=== PATIENT | female | born 1945 | race Caucasian/White ===

== ENCOUNTER 2016-08-19 10:48 | Emergency (ER) | payer MEDICARE, BC ==
--- NOTE | 2016-08-19 11:07 | UC ---
Hip/Pelvis Pain - HPI Summary HPI Summary: 70 YEAR OLD FEMALE PRESENTS WITH LEFT HIP/BACK PAIN. - History Of Current Complaint Chief Complaint: UCBackPain Stated Complaint: LEFT SIDE PAIN-LEG,HIP,BACK Time Seen by Provider: 08/19/16 11:00 - Allergies/Home Medications Allergies/Adverse Reactions: Allergies Allergy/AdvReac Type Severity Reaction Status Date / Time No Known Allergies Allergy Verified 08/19/16 10:56 Home Medications: Home Medications Cranberry-Vitamin C [Azo Cranbery Urinary Trac 250-60 mg] 1 cap PO 08/19/16 [ History] Lisinopril TAB* [Prinivil TAB 5 MG*] 08/19/16 [History] PMH/Surg Hx/FS Hx/Imm Hx - Surgical History Surgical History: Yes Surgery Procedure, Year, and Place: 3 c-sections, wisdom teeth extraction; RETINA DETACHMNET 2006(REPAIRED WITH SCLERAL BUCKLE) PER PATIENT(OK TO SCAN PER DR RUVALCABA.) - Family History Known Family History: Positive: Unknown - Social History Alcohol Use: None Substance Use Type: None Smoking Status (MU): Never Smoked Tobacco Have You Smoked in the Last Year: No Review of Systems Constitutional: Negative Skin: Negative Eyes: Negative ENT: Negative Respiratory: Negative Cardiovascular: Negative Gastrointestinal: Negative Genitourinary: Negative Motor: Negative Neurovascular: Negative Musculoskeletal: Arthralgia, Decreased ROM, Myalgia Neurological: Negative Psychological: Negative All Other Systems Reviewed And Are Negative: Yes Physical Exam Triage Information Reviewed: Yes Vital Signs: Initial Vital Signs Temp 36.8 C 08/19/16 10:50 Pulse 82 08/19/16 10:50 Resp 22 08/19/16 10:50 BP 162/63 08/19/16 10:50 Pulse Ox 100 08/19/16 10:50 Eye Exam: Normal ENT Exam: Normal Dental Exam: Normal Neck exam: Normal Neck: Positive: 1 Respiratory Exam: Normal Cardiovascular Exam: Normal Abdominal Exam: Normal Musculoskeletal: Positive: Strength Limited @, ROM Limited @ Neurological Exam: Normal Psychological Exam: Normal Skin Exam: Normal Hip Injury Course/Dx - Course Course Of Treatment: LEFT HIP/LEG PAIN - Differential Dx/Diagnosis Provider Diagnoses: LEFT HIP/LEG PAIN Discharge - Discharge Plan Condition: Stable Disposition: AGAINST MEDICAL ADVICE Patient Education Materials: Hip Pain (ED) Referrals: Randall Stanley MD [Primary Care Provider] - If Needed
[2016-08-19 11:09] VITALS: BP 162/63
== END 2016-08-19 11:20 | disposition left against medical advice (07) ==
LOC: UCEAST 10:48
DX: M25.552 Pain in left hip (principal); M79.605 Pain in left leg
CPT/HCPCS: 99212; G0463

== ENCOUNTER 2016-08-19 11:40 | Emergency (ER) | payer MEDICARE, BC ==
[2016-08-19] MEDS ORDERED: oxyCODONE/Acetamin 5/325 MG* TAB PO ONE (14:16)
--- NOTE | 2016-08-19 14:25 | ED ---
Lower Extremity - HPI Summary HPI Summary: 70F presents with left back and pain down leg for a 5 days. She has had sciatica pain in past and this feels the same. She was recently on a cruise and developed sciatica pain during the cruise that resolves. She denies any injury to the area. She has denies any numbness or tingling. She denies any weakness. She states the pain makes it difficulty to walk. The pain is sharp in nature. She denies any loss of bowel or bladder or saddle anaesthesia. She is being followed by [facility] for K which has been trending downward and has lab work draw tomorrow. - History of Current Complaint Chief Complaint: EDHipPelvisInjury Stated Complaint: LT SIDE HIP/LEG PAIN Time Seen by Provider: 08/19/16 13:55 Pain Intensity: 9 - Allergies/Home Medications Allergies/Adverse Reactions: Allergies Allergy/AdvReac Type Severity Reaction Status Date / Time No Known Allergies Allergy Verified 08/19/16 10:56 PMH/Surg Hx/FS Hx/Imm Hx Endocrine/Hematology History: Reports: Hx Diabetes - type 2 Denies: Hx Thyroid Disease Cardiovascular History: Reports: Hx Hypertension Denies: Hx Pacemaker/ICD Respiratory History: Denies: Hx Asthma, Hx Chronic Obstructive Pulmonary Disease (COPD) GI History: Denies: Hx Ulcer Musculoskeletal History: Denies: Hx Rheumatoid Arthritis, Hx Osteoporosis Sensory History: Reports: Hx Hearing Aid Psychiatric History: Denies: Hx Panic Disorder - Cancer History Hx Chemotherapy: No Hx Radiation Therapy: No - Surgical History Surgery Procedure, Year, and Place: 3 c-sections, wisdom teeth extraction; RETINA DETACHMNET 2006(REPAIRED WITH SCLERAL BUCKLE) PER PATIENT(OK TO SCAN PER DR RUVALCABA.) Infectious Disease History: No Infectious Disease History: Denies: Hx Hepatitis, Hx Human Immunodeficiency Virus (HIV), Traveled Outside the [place] in Last 30 Days - Family History Known Family History: Positive: Unknown - Social History Alcohol Use: Rare Substance Use Type: Reports: None Smoking Status (MU): Never Smoked Tobacco Have You Smoked in the Last Year: No Review of Systems Negative: Fever Negative: Chest Pain Negative: Shortness Of Breath Positive: Myalgia - pain down leg All Other Systems Reviewed And Are Negative: Yes Physical Exam Triage Information Reviewed: Yes Vital Signs On Initial Exam: Initial Vitals Temp Pulse Resp BP Pulse Ox 98.2 F 90 16 138/65 100 08/19/16 11:43 08/19/16 11:43 08/19/16 11:43 08/19/16 11:43 08/19/16 11:43 Vital Signs Reviewed: Yes Appearance: Positive: Well-Appearing Skin: Positive: Warm, Dry Head/Face: Positive: Normal Head/Face Inspection Eyes: Positive: Normal, Conjunctiva Clear Respiratory/Lung Sounds: Positive: Clear to Auscultation, Breath Sounds Present Cardiovascular: Positive: Normal, RRR Musculoskeletal: Positive: Strength/ROM Intact - left leg, Other - pos SLR left , no midline tenderness back, tender on left side back, Neurological: Positive: Reflexes Intact - patella Diagnostics - Vital Signs Vital Signs Temp Pulse Resp BP Pulse Ox 08/19/16 11:43 98.2 F 90 16 138/65 100 - Laboratory Lab Statement: Any lab studies that have been ordered have been reviewed, and results considered in the medical decision making process. Lower Extremity Course/Dx - Course Course Of Treatment: 70F presents with left back and pain down leg for a 5 days. She has had sciatica pain in past and this feels the same. She was recently on a cruise and developed sciatica pain during the cruise that resolves. She denies any injury to the area. She has denies any numbness or tingling. She denies any weakness. She states the pain makes it difficulty to walk. The pain is sharp in nature. on exam pos SLR. tender of left side back, neurovascular intact. will treat with gabapentin and muscle relaxer. told to get K drawn tomorrow as scheduled and to follow up with primary. patient understands and agrees with plan - Diagnoses Differential Diagnosis/HQI/PQRI: Positive: Sciatica, Sprain, Strain Provider Diagnoses: Sciatica Discharge - Discharge Plan Condition: Good Disposition: HOME Prescriptions: Cyclobenzaprine TAB* [Flexeril 10 MG TAB*] 10 mg PO TID PRN #9 tab PRN Reason: Pain Gabapentin CAP(*) [Neurontin 100 mg CAP(*)] 100 mg PO TID #13 cap Patient Education Materials: Sciatica (ED) Referrals: Randall Stanley MD [Primary Care Provider] - Additional Instructions: Take gabapentin 3 times a day for pain Take muscle relaxers three times a day for 3 days Use Tylenol for pain every 6 hours ice/heat area, move as much as possible Follow up with primary within 5 days Return to ED if develop any new or worsening symptoms
[2016-08-19 14:40] VITALS: BP 133/78
== END 2016-08-19 14:35 | disposition home or self-care (01) ==
LOC: ED 11:40
DX: M54.32 Sciatica, left side (principal); E11.9 Type 2 diabetes mellitus without complications; I10 Essential (primary) hypertension
CPT/HCPCS: 99282; A9270-GY

== ENCOUNTER 2016-09-04 06:08 | Observation (INO) | payer MEDICARE, BC ==
[~2016-09-04 06:08] MED LIST: Buffered Lidocaine 0.9% SYRIN* 5 ML/SYR SYRINGE INTRADERM ONE; Buffered Lidocaine 0.9% SYRIN* 5 ML/SYR SYRINGE ONE; ceFAZolin 2 GM PREMIX (*) 2 GM/50 ML BAG IVPB ONE
[2016-09-04] MEDS ORDERED: Thrombin 5,000 UNITS* 1 APPLIC KIT - topical use - TOPICAL ONE (07:19)
[2016-09-04] MEDS ORDERED: Lidocaine 1% MPF wEPI 200,000* 30 ML SDV ONE (07:19)
[2016-09-04] MEDS ORDERED: Bacitracin IV* 50,000 UNITS INJ ONE (07:19)
[2016-09-04] MEDS ORDERED: fentaNYL* 50 MCG/ML 2 ML VIAL (100 MCG VIAL) ONE ×2 (07:25→09:52)
[2016-09-04] MEDS ORDERED: Midazolam* 1 MG/ML 2 ML VIAL (2 MG) ONE (07:25)
[2016-09-04] MEDS ORDERED: Cisatracurium* 2 MG/ML MDV 5 ML ONE (07:54)
[2016-09-04] MEDS ORDERED: Famotidine IV* 10 MG/ML 2 ML (20 mg) ONE (08:15)
[2016-09-04] MEDS ORDERED: Ondansetron INJ* 2 MG/ML VIAL ONE (08:15)
[2016-09-04] MEDS ORDERED: Succinylcholine* 20 MG/ML 10 ML VIAL ONE (08:15)
[2016-09-04] MEDS ORDERED: Phenylephrine IV* 40 MCG/ML 10 ML SYRINGE ONE (08:15)
[2016-09-04] MEDS ORDERED: Dexamethasone IV* 4 MG/ML 1 ML (4 MG) ONE (08:15)
[2016-09-04] MEDS ORDERED: Lidocaine 2% PF * 5 ML VIAL ONE (08:15)
[2016-09-04] MEDS ORDERED: Propofol* 10 MG/ML 20 ML BTL IV PUSH ONE (08:15)
[2016-09-04] MEDS ORDERED: EPHEDrine (Pressors)* 50 MG/ML VIAL ONE (08:25)
[2016-09-04] MEDS ORDERED: PROCHLORPERAZINE INJ 5 MG/ML 2 ML VIAL IV PRN (08:39)
[2016-09-04] MEDS ORDERED: DiMENhydriNATE IV* 50 MG/ML VIAL IV PUSH PRN (08:39)
[2016-09-04] MEDS ORDERED: fentaNYL* 50 MCG/ML 2 ML VIAL (100 MCG VIAL) IV PRN (08:39)
[2016-09-04] MEDS ORDERED: Acetaminophen TAB* 325 MG PO PRN (08:39)
[2016-09-04] MEDS ORDERED: Ondansetron INJ* 2 MG/ML VIAL IV PRN (09:27)
[2016-09-04] MEDS ORDERED: HYDROcodone/ACETAMIN 5-325 MG* 1 TAB PO PRN (09:27)
--- NOTE | 2016-09-04 10:06 | RAD ---
INDICATION: L4-L5 left lumbar discectomy. COMPARISON: Correlation is made with a prior MRI of the lumbar spine from August 28, 2016. TECHNIQUE: A single crosstable portable view of the lumbar spine was obtained in the operating room. FINDINGS: There are several surgical instruments which project posterior at the L4-L5 level. There is grade 1 anterior spondylolisthesis at the L4-L5 level. IMPRESSION: INTRAOPERATIVE CONTROL FILMS.
[2016-09-04] MEDS ORDERED: Insulin LISPRO* 1 UNITS UNIT SUBCUT SCH (11:30)
[2016-09-04] MEDS: Insulin LISPRO* 1 UNITS UNIT SUBCUT SCH ×3 (12:35→21:37)
--- NOTE | 2016-09-04 13:26 | CONS ---
CC: Dr. Stanley; Dr. Bell; Dr. Parkinson; Dr. Johnson* CONSULTATION REPORT: DATE OF CONSULT: 09/04/16 PRIMARY CARE PROVIDER: Dr. Stanley. PRODUCT DELIVERY SPECIALIST: Dr. Bell. RUBBLE PLACER: Dr. Parkinson. NEUROSURGEON: Dr. Johnson. REASON FOR CONSULT: Postoperative management of patient with history of hypertension, dyslipidemia, and diabetes. REQUESTING PHYSICIAN: The consultation was requested by Dr. Johnson from Neurosurgery. CHIEF COMPLAINT: Back pain. HISTORY OF PRESENT ILLNESS: Donna Darden is a 70-year-old female with history of hypertension, dyslipidemia, and diabetes, insulin dependent, who presented to the hospital today for a scheduled L4-L5 diskectomy and laminectomy performed by Dr. Johnson. Postoperatively, medicine service was requested to see patient for postoperative management of her chronic conditions. The patient herself currently is being seen in PACU. She experiences no pain. She complains of no nausea. She is alert and oriented x3 and does not appear lethargic. She stated that she has had problems with left leg pain and sciatica leg pain, whenever she would walk for several months now. That necessitated for her to use a wheelchair whenever she would go longer distances and usually would use a roller walker when at home. She stated that for her pain, she had used increasing dose of gabapentin with not the greatest relief in pain. Today, she is postoperative after L4-L5 laminectomy by Dr. Johnson. PAST MEDICAL HISTORY: 1. History of vitamin B12 deficiency. 2. Chronic kidney disease, stage 3, due to diabetes. 3. Diabetes, type 2, insulin dependent. 4. Hypercholesterolemia. 5. Hypertension. 6. History of x3. 7. History of detached retina. 8. History of cataract surgery. MEDICATIONS: At home, include: 1. Gabapentin 400 mg 3 times a day. 2. Acetaminophen on a p.r.n. basis. 3. Amlodipine 10 mg daily. 4. Aspirin 81 mg daily. 5. Atorvastatin 40 mg daily. 6. Cranberry with vitamin C 1 capsule b.i.d. 7. Vitamin B12 2500 mcg daily. 8. Insulin glargine 35 units at bedtime. 9. Lispro sliding scale. 10. Lisinopril 5 mg daily. 11. Metoprolol succinate 50 mg daily. 12. Multivitamin 1 tablet daily. 13. Omeprazole 20 mg daily. ALLERGIES: LEVAQUIN causes GI upset. FAMILY HISTORY: Positive for father with history of heart disease and COPD, who in his 80s. The patient's mother of "blood clot" at the age of 56. The patient is quite emotional when she is explaining her mother's . At this point, she is unable to give me further details. SOCIAL HISTORY: The patient lives alone. Her sister is the person of contact, but her surrogate would be her son, Gagan Darden. The patient denies any tobacco or drug use. She drinks alcohol rarely. REVIEW OF SYSTEMS: Please see history of present illness. Currently, she is in a postoperative state and denies pain. Her lower back pain radiating to left leg had been ongoing for several months, incapacitating to the point of problems with ambulatory dysfunction as mentioned above. The patient denies any chest pain or shortness of breath. Her diabetes had been reasonably controlled. She had been seeing Dr. Parkinson for history of chronic kidney disease, stage 3 and hypertension. All the remaining 14 systems were reviewed with the patient and were otherwise negative. PHYSICAL EXAM: Blood pressure of 135/74, heart rate of 76 and regular, respiratory rate 14, oxygen saturation 97% on room air, temperature 97.3. General: The patient is a very pleasant 70-year-old female, who is no acute distress. The patient is alert, awake, and oriented x3. HEENT: Head atraumatic, normocephalic. Eyes: Pupils equal and reactive to light and accommodation. Oropharynx clear. Mucosa moist. Neck: Supple. No JVD. No bruits bilaterally. Cardiovascular: Regular rate and rhythm. No murmur. Respiratory: Clear to auscultation bilaterally. Abdomen: Soft and nontender. Bowel sounds present in all 4 quadrats. Extremities: There is no edema. Pulses +2 bilaterally. No clubbing or cyanosis. Neuro Evaluation: Speech clear. Cranial nerves II through XII grossly intact. Motor strength is 5/5 bilaterally. On evaluation of the skin of the back, the patient has a postoperative dressing applied to the lumbar spine. There is one OMAR drain with serosanguineous contents in place. The postoperative dressings were not removed during the evaluation. Psychiatric Evaluation: The patient is oriented x 3 with no evidence of anxiety or depression. LABORATORY DATA: The most recent laboratory data was obtained on 08/31/16 shows sodium of 130, potassium of 4.2, chloride 102, carbon dioxide 22, BUN 44, creatinine 1.62, which is the patient's baseline. The patient's last hemoglobin A1c was obtained on 08/13/16, it was 7.6. CBC on 08/31/16 shows white blood cell count of 10.4, hemoglobin of 11.0, hematocrit 34, The patient's mild anemia is consistent with prior reports. ASSESSMENT AND PLAN: 1. Status post lumbar laminectomy and diskectomy. That is as per Dr. Johnson. The patient is being placed on gabapentin as well as Newton and fentanyl IV. 2. In regards to the patient's hypertension, we will continue the patient's lisinopril and Toprol-XL and hold amlodipine for the time being. 3. In regards to the patient's diabetes, the patient is usually at 35 units of Lantus at night. Due to currently in hospital setting, the patient is going to be placed at 25 units a night of insulin Lantus as well as insulin lispro sliding scale. 4. In regards to patient's dyslipidemia, Lipitor is going to be continued. 5. For DVT prophylaxis, the primary service did not place the patient on anticoagulation. I will consult with Dr. Johnson and start the patient most likely on heparin subcutaneously if okay with the primary service. 6. The patient's code status is full and her surrogate is her son. TIME SPENT: Approximately 62 minutes was spent on consultation of this patient , more than half the time was spent [id number] with patient during the interview and physical exam. Thank you very much for allowing me to see your patient in consultation. We will see the patient on a daily basis. [id number]/CPS #: [id number] MTDD
[2016-09-04] MEDS: Gabapentin CAP(*) 400 MG PO SCH ×2 (13:56→21:51)
[2016-09-04] MEDS ORDERED: Aspirin EC Low Dose* 81 MG TAB.EC PO SCH (18:00)
[2016-09-04] MEDS ORDERED: Insulin GLARGINE(*) 1 UNITS UNIT SUBCUT SCH ×2 (21:00)
[2016-09-04] MEDS: Acetaminophen TAB* 325 MG PO PRN (21:43)
[2016-09-05] MEDS: Acetaminophen TAB* 325 MG PO PRN (06:36)
[2016-09-05 07:34] VITALS: BP 128/54
--- NOTE | 2016-09-05 08:06 | PN ---
Progress Note - Progress Note Date of Service: 09/05/16 SOAP: Subjective: [This is a 70 year old female s/p decompressive lumbar laminectomy L4-5 and lumbar discectomy L4-5 on the left, POD #1. Pre-operative left lower extremity pain is improving. She complains of mild incisional discomfort. Pain is well controlled with oral pain medication. She is ambulating with assistance. She is eating, drinking and voiding without difficulty. Denies numbness, tingling, weakness and pain in the bilateral lower extremities. ] Objective: [ Vital Signs: Temp Pulse Resp BP Pulse Ox 98.4 F 86 16 128/54 95 09/05/16 07:21 09/05/16 07:21 09/05/16 07:21 09/05/16 07:21 09/05/16 07:21 General: Alert and oriented. No distress. Neuro: Motor and sensory intact. Incision: Intact with remberto. No erythema, swelling or infection. OMAR drain removed today without complication. Extremities: Full ROM in upper and lower extremities. ] Assessment: [Satisfactory post-op course.] Plan: [1. Discharge home today. 2. Discharge instructions including wound care and activity level were discussed with the patient. ]
[2016-09-05] MEDS: Insulin LISPRO* 1 UNITS UNIT SUBCUT SCH (08:22)
[2016-09-05] MEDS: Gabapentin CAP(*) 400 MG PO SCH (08:24)
[2016-09-05 08:42] LABS: Hematocrit 29 % (35-47); Hemoglobin 9.5 g/dl (12.0-16.0); Mean Corpuscular HGB Conc 32 g/dl (31-36); Mean Corpuscular Hemoglobin 28 pg (27-31); Mean Corpuscular Volume 88 fL (80-97); Mean Platelet Volume 7 um3 (7.4-10.4); Red Blood Count 3.36 10^6/ul (4.0-5.4); Red Cell Distribution Width 16 % (10.5-15); White Blood Count 19.6 10^3/ul (3.5-10.8)
[2016-09-05 08:58] LABS: BUN/Creatinine Ratio 29.9 (8-20); Calcium 9.1 mg/dL (8.6-10.3); EGFR Non-African American 38.9 (>60); Potassium 4.8 mmol/L (3.5-5.0)
[2016-09-05] MEDS ORDERED: Atorvastatin* 40 MG TAB PO SCH (09:00)
[2016-09-05] MEDS ORDERED: Metoprolol Tartrate TAB* 25 MG PO SCH (09:00)
[2016-09-05] MEDS ORDERED: AMLODIPINE BESYLATE 10 MG PO SCH (09:00)
[2016-09-05] MEDS ORDERED: Lisinopril TAB* 5 MG PO SCH (09:00)
[2016-09-05] MEDS ORDERED: Metoprolol Succinate XL TAB* 50 MG PO SCH ×2 (09:00)
[2016-09-05] MEDS ORDERED: Omeprazole CAP* 20 MG PO SCH (09:00)
--- NOTE | 2016-09-06 11:10 | DS ---
DISCHARGE SUMMARY: DATE OF ADMISSION: 09/04/16 DATE OF DISCHARGE: 09/05/16 PROVIDER: Dr. Johnson.* (DICTATED BY TORRES BISHOP) DISCHARGE DIAGNOSES: 1. Lumbar spinal stenosis, L4-5. 2. Herniated nucleus pulposus, L4-5 on the left. 3. Hypertension. 4. Diabetes. SPECIAL PROCEDURES: Decompressive lumbar laminectomy at L4-5 and lumbar discectomy at L4-5 on the left. HOSPITAL COURSE: This 70-year-old year female was seen in the office with symptomatic lumbar stenosis and lumbar radiculopathy. MRI showed lumbar stenosis at L4-5 and herniated disk at L4-5 on the left. She failed to improve with conservative treatments and was admitted at this time for elective surgical intervention. On the day of admission, she was taken to surgery where under general anesthesia, a decompressive lumbar laminectomy at L4-5 and a lumbar diskectomy at L4-5 on the left operation was carried out. Postoperatively, she was feeling well. Preoperative left lower extremity pain was resolved. She was ambulating independently. She was eating, drinking, and voiding without difficulty. Pain was well controlled with oral pain medication. On the first postoperative day, the OMAR wound drain was removed. She was also discharged home on the first postoperative day to the care of her family. DISCHARGE INSTRUCTIONS: Including wound care and activity level were discussed with the patient and provided. She will be seen in approximately 7 days for followup and staple removal. DISCHARGE MEDICATION: No discharge medications prescribed. TORRES BISHOP [id number]/[facility] #: [id number] [facility]LEY PSYCHIATRIC CENTERGonsalo
--- NOTE | 2016-09-11 01:09 | OP ---
DATE OF OPERATION: 09/04/16 - ROOM #335 DATE OF : 41 PRIMARY SURGEON: J Carlos Johnson MD REGISTRY RN: TORRES Mayberry ANESTHESIOLOGIST: Jean Echevarria MD ANESTHESIA: General. PRE-OP DIAGNOSIS: Lumbar spinal stenosis, L4-5; herniated nucleus pulposus, L4- 5 on the left. POST-OP DIAGNOSIS: Lumbar spinal stenosis, L4-5; herniated nucleus pulposus, L4 -5 on the left. OPERATIVE PROCEDURE: Lumbar decompression and laminectomy, L4-5 with diskectomy , L4-5 on the left with microdissection. DESCRIPTION OF PROCEDURE: After satisfactory general anesthesia was obtained, the patient was placed on the operating room table in a prone position with the chest supported on the Rolando frame and the back slightly flexed. The lumbar region was then clipped, prepped, and draped in a sterile manner for lumbar laminectomy and a skin incision outlined from L4 to L5. This incision was infiltrated with 1% Xylocaine with epinephrine after which it was turned down sharply to the level of the lumbar fascia. The fascia was divided on the spinous process from L4 to L5 and the paraspinal musculature stripped away using periosteal elevator and monopolar cautery bilaterally. An intraoperative x-ray was obtained verifying proper interspace localization after which the initial step in the procedure was a decompression at L4-5 level where the patient had significant spinal stenosis. The spinous process of L4 and the superior aspect of spinous process of L5 was removed with the Izzy rib shear and Leksell rongeur. The inferior aspect of the base of the spinous process with L4 inferior aspect of the lamina and medial aspect of facet complex was then thinned out with Midas Rudi drill. Decompression was then carried out and carried superiorly until the attachment of the ligamentum flavum was taken down. There was no remarked thickening of ligament as well as bony facet hypertrophy at this level. This decompression was carried out inferiorly until both L5 nerve root were noted to be free in their course. The additional superior exposure was obtained on the left side as preoperative x-rays had suggested the superior migration of the disk fragment. Utilizing microdissection, epidural venous structure were coagulated and divided. Muscular fragments of the disk as well as cartilaginous endplate were delivered from this exposure with marked compression on the L4 nerve root out near where it exited around the L4 pedicle. The disk space itself was palpated and was felt to be firm and was not disturbed. Hemostasis was obtained with temporary Gelfoam. After assuring adequate hemostasis, wound was thoroughly irrigated after which a piece of Gelfoam was placed over the laminectomy defect. A Cory drain was placed in the epidural space and tunneled out toward the left side. The fascia was then reapproximated with 0 Vicryl suture. The subcutaneous tissue was closed with 3-0 Vicryl suture and the skin closed with skin clips. The estimated blood loss was less than 50 cc. Final sponge, padding, and needle counts were correct. The patient was taken to the recovery room, extubated and in stable condition. [id number]/[facility] #: [id number] MTDD
== END 2016-09-05 10:00 | disposition home or self-care (01) ==
LOC: OR 06:08 → SSU 11:15
PROVIDERS: ADMIT Neurological Surgery; ATTEND Internal Medicine
PROC: 00NY0ZZ Release Lumbar Spinal Cord, Open Approach (ICD-10-PCS; 2016-09-04)
PROC: 0SB20ZZ Excision of Lumbar Vertebral Disc, Open Approach (ICD-10-PCS; principal; 2016-09-04 07:45)
DX: M48.06 Spinal stenosis, lumbar region (principal); M51.16 Intervertebral disc disorders with radiculopathy, lumbar region; E11.9 Type 2 diabetes mellitus without complications; I12.9 Hypertensive chronic kidney disease with stage 1 through stage 4 chronic kidney disease, or unspecified chronic kidney disease; N18.9 Chronic kidney disease, unspecified; Z79.4 Long term (current) use of insulin; Z79.899 Other long term (current) drug therapy
CPT/HCPCS: 36415; 72100; 80048; 85027; 88304; A9270-GY; G0378; J0330; J0690; J1100; J2001; J2250; J2405; J2704; J3010

== ENCOUNTER 2016-10-23 15:45 | Emergency (ER) | payer MEDICARE, BC ==
[2016-10-23 15:52] VITALS: BP 145/65
--- NOTE | 2016-10-23 17:04 | UC ---
Lower Extremity/Ankle HPI - HPI Summary HPI Summary: 71 y/o female with b/l leg swelling since back surgery (? lumbar fusion, decompression) 07/2016. patient states normal surgery, has been ambulatory without difficulty since, no SOB, chest pain. patient staets had b/l leg swelling since surgeyr, increased over past 2 weeks, L>R. STates in AM r leg smaller, L leg no change. Has not notified Raquel Johnson. h/o varicose veins , worse on L side. No h/o cardiac symptoms. - History of Current Complaint Chief Complaint: UCLowerExtremity Stated Complaint: LEG COMPLAINT Time Seen by Provider: 10/23/16 16:15 Hx Obtained From: Patient ?: No Onset/Duration: Gradual Onset, Lasting Weeks, Still Present, Worse Since - 2 weeks Severity Initially: Mild Severity Currently: Moderate - Allergies/Home Medications Allergies/Adverse Reactions: Allergies Allergy/AdvReac Type Severity Reaction Status Date / Time Levofloxacin [From Levaquin] AdvReac Nausea And Verified 10/23/16 15:52 Vomiting Home Medications: Home Medications HYDROcodo/Acetam5/325MG PREPAK [HYDROcodone/ACETAMIN 5-325 MG*] 1 tab PO Q4H PRN 10/23/16 [History Confirmed 10/23/16] PMH/Surg Hx/FS Hx/Imm Hx Previously Healthy: Yes - Surgical History Surgical History: Yes Surgery Procedure, Year, and Place: spinal surgery 07/2016. c-sections x3 - [facility]. wisdom teeth extraction - [facility] [place]. RETINA DETACHMENT 2006 (REPAIRED WITH SCLERAL BUCKLE - OK TO SCAN PER DR RUVALCABA.);- [place]. bilateral cataract extractions with IOL's - [facility] - Family History Known Family History: Positive: Unknown - Social History Alcohol Use: None Substance Use Type: None Smoking Status (MU): Never Smoked Tobacco Have You Smoked in the Last Year: No Review of Systems Eyes: Negative ENT: Negative Respiratory: Negative Cardiovascular: Negative Musculoskeletal: Myalgia - diffuse b/l LE All Other Systems Reviewed And Are Negative: Yes Physical Exam Triage Information Reviewed: Yes Appearance: Well-Appearing, No Pain Distress, Well-Nourished Vital Signs: Initial Vital Signs Temp 98.5 F 10/23/16 15:47 Pulse 81 10/23/16 15:47 Resp 16 10/23/16 15:47 BP 145/65 10/23/16 15:47 Pulse Ox 99 10/23/16 15:47 Vital Signs Reviewed: Yes Eyes: Positive: Conjunctiva Clear Respiratory: Positive: Chest non-tender, Lungs clear, Normal breath sounds Cardiovascular: Positive: RRR, Murmur:Sys:Grade _?_/ - 3 Musculoskeletal: Positive: Strength Intact, ROM Intact, Edema @ - b/l LE's, L mildly worse than R., Other: - homans negative b/l, + diffuse pain throughout calf, rodriguez. no warmth. Neurological: Positive: Alert, Muscle Tone Normal Psychological Exam: Normal Skin Exam: Normal Lower Extremity Course/Dx - Course Course Of Treatment: unable to perform US due to time, patient advised to go to ER for evaluation or if does not to call PCP, Dr. Johnson in AM and make aware of symptoms or return in AM to URgent care. EKG done- NSR - Differential Dx/Diagnosis Differential Diagnosis/HQI/PQRI: Cellulitis, DVT, Gout, Sprain, Strain Provider Diagnoses: lower leg edema Discharge - Discharge Plan Condition: Stable Disposition: HOME Patient Education Materials: Leg Edema (ED) Referrals: Randall Stanley MD [Primary Care Provider] - (Follow up for heart murmur, leg swelling ) Additional Instructions: - Follow up in ER for ultrasound tonight. IF not, return to urgent care tomorrow before 4 or notify primary physician/ Dr. Johnson for evaluation - Go immediately to ER with shortness of breath, chest pain, lightheadedness, leg pain, or new symptoms - elevate legs as much as possible, avoid sitting - Follow up with Dr. elizondo for heart murmur.
== END 2016-10-23 17:25 | disposition home or self-care (01) ==
LOC: UCEAST 15:45
DX: R60.9 Edema, unspecified (principal)
CPT/HCPCS: 93005; 99212; G0463

== ENCOUNTER 2016-10-23 17:45 | Emergency (ER) | payer MEDICARE, BC ==
[2016-10-23 21:08] LABS: Urine Bacteria Absent (Absent); Urine Bilirubin Negative (Negative); Urine Glucose Negative (Negative); Urine Nitrite Negative (Negative)
[2016-10-23 21:16] LABS: Hematocrit 30 % (35-47); Hemoglobin 9.9 g/dl (12.0-16.0); Mean Corpuscular HGB Conc 33 g/dl (31-36); Mean Corpuscular Hemoglobin 28 pg (27-31); Mean Corpuscular Volume 86 fL (80-97); Mean Platelet Volume 7 um3 (7.4-10.4); Red Cell Distribution Width 14 % (10.5-15); White Blood Count 10.4 10^3/ul (3.5-10.8)
--- NOTE | 2016-10-23 21:17 | RAD ---
Indication: Leg swelling. Comparison: August 31, 2016 Technique: Sitting AP and lateral chest views. Report: Costochondral calcifications noted. No pulmonary infiltrate, focal pulmonary lesion, pleural effusion, pneumothorax. Negative for pleural effusion or pneumothorax. The heart, pulmonary vasculature, and mediastinal contours are unremarkable. IMPRESSION: No evidence for acute intrathoracic disease.
[2016-10-23 21:32] LABS: BUN/Creatinine Ratio 32.6 (8-20); Calcium 9.5 mg/dL (8.6-10.3); EGFR Non-African American 36.6 (>60); Potassium 4.7 mmol/L (3.5-5.0); Total Bilirubin 0.5 mg/dL (0.2-1.0)
[2016-10-23] MEDS ORDERED: Furosemide TAB* 20 MG PO ONE (23:01)
--- NOTE | 2016-10-23 23:20 | ED ---
Montana Frye Rebecca, scribed for Sandy Foxuel on 10/23/16 at 2028 . Lower Extremity - HPI Summary HPI Summary: Pt is a 71 y/o F referred from [facility] who presents to ED c/o bilateral LE pain and edema. Sx have been present for multiple weeks, worsening recently. Sx aggravated and alleviated by nothing. Denies any other symptoms including SOB, CP and blood in stool. Reports she had back surgery in the 2nd week of July which caused a pinched nerve so she initially believed LE pain was due to nerve damage, but now swelling is present as well. No prior similar episodes. - History of Current Complaint Chief Complaint: EDExtremityLower Stated Complaint: SWOLLEN LEGS-NEEDS ULTRASOUND Time Seen by Provider: 10/23/16 20:11 Hx Obtained From: Patient Onset of Pain: Days - Multiple weeks Onset/Duration: Still Present Location: Is Discrete @ - Bilateral LE Associated Signs And Symptoms: Positive: Swelling Aggravating Factor(s): Nothing Alleviating Factor(s): Nothing - Allergies/Home Medications Allergies/Adverse Reactions: Allergies Allergy/AdvReac Type Severity Reaction Status Date / Time Levofloxacin [From Levaquin] AdvReac Nausea And Verified 10/23/16 15:52 Vomiting PMH/Surg Hx/FS Hx/Imm Hx Endocrine/Hematology History: Reports: Hx Diabetes - on meds Denies: Hx Thyroid Disease Cardiovascular History: Reports: Hx Hypertension - on meds, Other Cardiovascular Problems/Disorders - hyperlipidemia Denies: Hx Pacemaker/ICD Respiratory History: Denies: Hx Asthma, Hx Chronic Obstructive Pulmonary Disease (COPD) GI History: Reports: Hx Gastroesophageal Reflux Disease - on med Denies: Hx Ulcer History: Reports: Hx Renal Disease - DECREASING STAGE iii - SEES DR. NORIEGA Musculoskeletal History: Reports: Hx Arthritis - bilateral hands Denies: Hx Rheumatoid Arthritis, Hx Osteoporosis Sensory History: Reports: Hx Cataracts - bilateral, Hx Contacts or Glasses - glasses, Hx Hearing Aid - bilateral Opthamlomology History: Reports: Hx Cataracts - bilateral, Hx Contacts or Glasses - glasses Neurological History: Reports: Other Neuro Impairments/Disorders - left leg numbness/tingling Psychiatric History: Denies: Hx Panic Disorder - Cancer History Hx Chemotherapy: No Hx Radiation Therapy: No - Surgical History Surgery Procedure, Year, and Place: spinal surgery 07/2016. c-sections x3 - [facility] - [facility] [place]. RETINA DETACHMENT 2006 (REPAIRED WITH SCLERAL BUCKLE - [place] TO SCAN PER DR RUVALCABA.);- [place]. bilateral cataract extractions with IOL's - [facility] Hx Anesthesia Reactions: No Infectious Disease History: Denies: Hx Hepatitis, Hx Human Immunodeficiency Virus (HIV), Traveled Outside the [place] in Last 30 Days - Family History Known Family History: Positive: Diabetes - Social History Alcohol Use: None Substance Use Type: Reports: None Hx Tobacco Use: No Smoking Status (MU): Never Smoked Tobacco Have You Smoked in the Last Year: No Review of Systems Negative: Chest Pain Negative: Shortness Of Breath Positive: other - NEGATIVE: blood in stool Positive: Edema - Bilateral LE edema with associated pain All Other Systems Reviewed And Are Negative: Yes Physical Exam - Summary Physical Exam Summary: Appearance: Well appearing, no pain distress Skin: warm, dry Head/face: normal Eyes: EOMI, IGNACIO, pale conjunctiva ENT: normal Neck: supple, nontender Respiratory: CTA, breath sounds present Cardiovascular: RRR, pulses symmetrical Abdomen: nontender, soft Bowel: present Musculoskeletal: strength/ROM intact, bilateral pedal edema Neuro: normal, sensory motor intact, A&Ox3 Triage Information Reviewed: Yes Vital Signs On Initial Exam: Initial Vitals Temp Pulse Resp BP Pulse Ox 98.9 F 87 20 155/70 100 10/23/16 17:53 10/23/16 17:53 10/23/16 17:53 10/23/16 17:53 10/23/16 17:53 Vital Signs Reviewed: Yes Diagnostics - Vital Signs Vital Signs Temp Pulse Resp BP Pulse Ox 10/23/16 17:53 98.9 F 87 20 155/70 100 - Laboratory Result Diagrams: 10/23/16 21:00 10/23/16 21:00 Lab Statement: Any lab studies that have been ordered have been reviewed, and results considered in the medical decision making process. - Radiology CXR Xray Interpretation: No Acute Changes - No evidence for acute intrathoracic disease. ED physician reviewed radiology report and agrees. Radiology Interpretation Completed By: Radiologist - EKG 2044 Cardiac Rate: NL - 74 bpm EKG Rhythm: Sinus Rhythm EKG Interpretation: No acute changes Re-Evaluation - Re-Evaluation First Eval Re-Evaluation Time: 23:50 Change: Improved Comment: Pt's sx have improved. Lower Extremity Course/Dx - Course Assessment/Plan: Pt is a 71 y/o F referred from [facility] who presents to ED c/o bilateral LE pain and edema. Sx have been present for multiple weeks, worsening recently. Sx aggravated and alleviated by nothing. Denies any other symptoms including SOB, CP and blood in stool. Reports she had back surgery in the 2nd week of July which caused a pinched nerve so she initially believed LE pain was due to nerve damage, but now swelling is present as well. No prior similar episodes. CXR reveals no acute findings. EKG is sinus rhythm with no acute changes. Blood work was done. Pt will be D/C to home with Dx of pedal edema, anemia and chronic renal failure with Rx for Lasix and a follow up with her PCP. She understands and agrees. Elevated BP noted and advised to f/u with PCP. - Diagnoses Provider Diagnoses: Chronic renal failure, Anemia, Pedal edema Discharge - Discharge Plan Condition: Stable Disposition: HOME Patient Education Materials: Anemia (ED), Leg Edema (ED) Referrals: Randall Stanley MD [Primary Care Provider] - 3 Days The documentation as recorded by the Montana delgado Rebecca accurately reflects the service I personally performed and the decisions made by , Preston Fox.
[2016-10-23 23:38] VITALS: BP 139/54
== END 2016-10-23 23:38 | disposition home or self-care (01) ==
LOC: ED 17:45
DX: N18.9 Chronic kidney disease, unspecified (principal); D64.9 Anemia, unspecified; R60.9 Edema, unspecified
CPT/HCPCS: 36415; 71020; 80053; 81003; 81015; 83880; 84484; 85025; 85610; 85730; 87040; 87086; 93005; 99283; A9270-GY

== ENCOUNTER 2016-11-27 07:45 | Inpatient (IN) | payer MEDICARE, BC ==
[2016-12-24] MEDS ORDERED: Buffered Lidocaine 0.9% SYRIN* 5 ML/SYR SYRINGE INTRADERM ONE (16:26)
[2016-12-25] MEDS ORDERED: Metoclopramide IV* 5 MG/ML 2 ML VIAL IV SLOW PU ONE (06:00)
[2016-12-25] MEDS ORDERED: Famotidine IV* 10 MG/ML 2 ML (20 mg) IV ONE (06:00)
[2016-12-25] MEDS ORDERED: Metoclopramide IV* 5 MG/ML 2 ML VIAL ONE (06:31)
[2016-12-25] MEDS ORDERED: Famotidine IV* 10 MG/ML 2 ML (20 mg) ONE (06:31)
[2016-12-25] MEDS ORDERED: Buffered Lidocaine 0.9% SYRIN* 5 ML/SYR SYRINGE ONE (06:31)
[2016-12-25] MEDS ORDERED: ceFAZolin 2 GM PREMIX (*) 2 GM/50 ML BAG IVPB ONE (06:51)
[2016-12-25] MEDS ORDERED: fentaNYL* 50 MCG/ML 2 ML VIAL (100 MCG VIAL) ONE ×3 (07:30→11:59)
[2016-12-25] MEDS ORDERED: Midazolam* 1 MG/ML 2 ML VIAL (2 MG) ONE (07:31)
[2016-12-25] MEDS ORDERED: Lidocaine 1% MPF wEPI 200,000* 30 ML SDV ONE (07:35)
[2016-12-25] MEDS ORDERED: Bacitracin IV* 50,000 UNITS INJ ONE (07:35)
[2016-12-25] MEDS ORDERED: Thrombin 5,000 UNITS* 1 APPLIC KIT - topical use - TOPICAL ONE (07:35)
[2016-12-25] MEDS ORDERED: Lidocaine 1% INJ* 10 MG/ML 30 ML SDV ONE (07:37)
[2016-12-25] MEDS ORDERED: Succinylcholine* 20 MG/ML 10 ML VIAL ONE (07:38)
[2016-12-25] MEDS ORDERED: fentaNYL* 50 MCG/ML 2 ML VIAL (100 MCG VIAL) IV PRN (10:27)
[2016-12-25] MEDS ORDERED: DiMENhydriNATE IV* 50 MG/ML VIAL IV PUSH PRN (10:27)
[2016-12-25] MEDS ORDERED: Propofol* 10 MG/ML 20 ML BTL IV PUSH ONE (11:01)
[2016-12-25] MEDS ORDERED: Ondansetron INJ* 2 MG/ML VIAL ONE (11:01)
--- NOTE | 2016-12-25 11:40 | RAD ---
INDICATION: Decompressive lumbar laminectomy COMPARISON: Lumbar spine August 22, 2016 FINDINGS: Less than 1 hour seconds of fluoroscopy were provided for the numerous surgical department. Fluoroscopic spot imaging of the number spine were initially acquired for operative control purposes. CPT II Codes: 6045F (fluoro time doc)
[2016-12-25] MEDS ORDERED: Acetaminophen TAB* 325 MG PO PRN (11:47)
[2016-12-25] MEDS ORDERED: Ondansetron INJ* 2 MG/ML VIAL IV PRN (11:47)
[2016-12-25] MEDS ORDERED: Morphine INJ* 4 MG/ML 1 ML CARPUJECT IV PRN (11:52)
[2016-12-25] MEDS ORDERED: HYDROmorphone INJ* 1 MG/ML CARPUJECT SYRINGE ONE (11:59)
[2016-12-25] MEDS: HYDROmorphone INJ* 1 MG/ML CARPUJECT SYRINGE IV PRN ×2 (13:01→13:38)
[2016-12-25] MEDS: HYDROcodone/ACETAMIN 5-325 MG* 1 TAB PO PRN ×2 (15:42→20:47)
[2016-12-25] MEDS: Gabapentin CAP(*) 100 MG PO SCH ×2 (15:44→20:46)
[2016-12-25] MEDS: Atorvastatin* 20 MG TAB PO SCH (17:06)
[2016-12-25] MEDS: Aspirin EC Low Dose* 81 MG TAB.EC PO SCH (17:06)
[2016-12-25] MEDS: Insulin LISPRO* 1 UNITS UNIT SUBCUT SCH ×2 (17:49→21:00)
--- NOTE | 2016-12-25 19:00 | CONS ---
CC: Dr. Johnson ; Dr. Randall Stanley CONSULTATION REPORT: DATE OF CONSULT: 12/25/16 PHYSICIAN REQUESTING CONSULTATION: Dr. J Carlos Johnson. PRIMARY CARE PHYSICIAN: Dr. Randall Stanley. ATTENDING PHYSICIAN: Dr. Martine Yu (report dictated by Simi Guerrier NP). REASON FOR CONSULT: Medical comanagement. HISTORY OF PRESENT ILLNESS: Ms. Darden is a 71-year-old female with history of hypertension; dyslipidemia; diabetes, insulin dependent, who underwent a decompressive lumbar laminectomy today by Dr. Johnson. Postoperatively, hospitalists were asked to see the patient for co-management of patient's medical comorbities. The patient states that she has continued to have pain and numbness in her legs, left is worse than right ever since. The patient had a previous laminectomy in August and continued to have weakness; hence, she came in for a revision. The patient takes gabapentin and Flexeril to try and help relieve her pain. Today, she is postoperative from revision laminectomy of the lumbar spine, L3 to L4. The patient states that her diabetes is relatively controlled with sugars in the 100s. The patient has been following with Dr. Parkinson for chronic kidney disease, stage 3. Her creatinine was stable preop. Currently, the patient denies any chest pain, shortness of breath. The patient states pain is controlled and she reports a small amount of numbness in her left leg, it is greater than right leg. PAST MEDICAL HISTORY: Vitamin B12 deficiency; chronic kidney disease, stage 3, due to diabetes; type 2 diabetes, insulin dependent; hypercholesterolemia; hypertension; x3; detached retina; cataract surgery. HOME MEDICATIONS: Include: 1. Prilosec 20 mg oral daily. 2. Multivitamin 1 tablet oral daily. 3. Lopressor 50 mg oral in the morning. 4. Lisinopril 5 mg oral in the morning. 5. Lispro 6 units subcu a.c. 6. Lantus 35 units subcu at bedtime. 7. [place] 5/325 one tablet oral every 6 hours as needed. 8. Neurontin 300 mg oral q.8. 9. Lasix 20 mg oral daily. 10. Vitamin B12 2500 mcg oral daily. 11. Cranberry 1 capsule oral twice daily. 12. Lipitor 20 mg oral at bedtime. 13. Aspirin 81 mg oral daily. 14. Amlodipine 10 mg oral in the morning. 15. AREDS 1 capsule oral twice daily. ALLERGIES: LEVAQUIN causes GI upset. FAMILY HISTORY: The patient's father had a history of heart disease and COPD and in the 80s. The patient's mother of blood clot at the age of 56. SOCIAL HISTORY: The patient lives alone. The patient states that her surrogate decision maker would be Gagan Darden, her son. The patient denies any tobacco or drug use and only drinks alcohol rarely. REVIEW OF SYSTEMS: I performed a 14-point review of systems. All the pertinent positives and negatives are mentioned in the history of present illness. Remaining review of systems is negative. PHYSICAL EXAM: Vital Signs: Temperature 97.7, heart rate 84, respiratory rate 20, oxygen saturation 100% on 2 L, blood pressure 100/44. Appearance: The patient was alert, pleasant, appeared to be in no apparent distress. Head, Eyes , Ears, Nose, and Throat: Normocephalic/atraumatic. Pupils were equal and reactive to light. Extraocular movements were intact. Neck: Neck was supple. No JVD. No bruits. Cardiovascular: Regular rate and rhythm. No murmur heard. Respiratory: Clear to auscultation bilaterally. Abdomen: Soft, nontender. Bowel sounds present in all 4 quadrants. Extremities: There was no edema. Pulses are 2+ and symmetric. No clubbing or cyanosis noted. Neuro: Cranial nerves II through XII are grossly intact. Motor strength is 5/5 bilaterally. Skin: The patient has a postoperative dressing with 1 OMAR drain with sanguinous drainage. Psych: The patient is alert and oriented x3. DIAGNOSTIC STUDIES/LAB DATA: Preoperative laboratory data shows sodium 137; potassium 5.3; chloride 104; CO2 27; BUN 55; creatinine 1.5, creatinine at baseline ranges between 1.5 to 1.8. Glucose 216. Liver function tests within normal limits. White blood cell count 12.3, hemoglobin 9.9, hematocrit 30, platelet count 346. INR of 0.9, PTT 33.9. X-ray of the lumbar spine today for surgical guidance. IMPRESSION AND PLAN: This is a 71-year-old female with past medical history significant for hypertension, diabetes, chronic kidney disease, anemia of chronic disease, who underwent L3 to L4 decompressive laminectomy. Hospitalists were asked to assist with management of the patient's comorbidities. 1. Status post postop day 0 decompressive lumbar laminectomy. Management will be per Dr. Johnson. The patient is going to be given fentanyl IV as well as [place] and gabapentin for pain control. 2. Hypertension. The patient's blood pressure is on the lower side. Toprol- XL will continue, but lisinopril and amlodipine will be held. 3. Diabetes. The patient normally takes 35 units of Lantus at night. As patients are usually more compliant with a consistent carb diet in the hospital , this will be decreased 25 units at bedtime. She will also have sliding scale coverage for fingersticks with every meal and at bedtime. 4. Chronic kidney disease. The patient has a baseline elevated creatinine. The patient will have her basic metabolic panel checked in the morning. For the time being, Lasix will be held as the patient is receiving fluids. Yet, likely this can be restarted in the morning as long as the patient's blood pressure has stabilized. 5. DVT prophylaxis. Will be per Neurosurgery. The patient has SCDs ordered. 6. Code status is full. 7. Fluids, electrolytes, and nutrition. The patient will have a consistent carb diet. TIME SPENT: For this consultation was 50 minutes, and 25 minutes was spent with the patient discussing past medical history, medications, and events leading up to her elective surgery today. Reviewed by SIMI GUERRIER NP 12/25/2016 2100 [id number]/CPS #: [id number] [email or web address]
[2016-12-25] MEDS ORDERED: Insulin GLARGINE(*) 1 UNITS UNIT SUBCUT SCH ×2 (21:00)
[2016-12-26] MEDS: HYDROcodone/ACETAMIN 5-325 MG* 1 TAB PO PRN ×5 (00:55→20:13)
[2016-12-26] MEDS: Gabapentin CAP(*) 100 MG PO SCH ×3 (04:03→20:13)
[2016-12-26 06:54] LABS: Hematocrit 24 % (35-47); Hemoglobin 7.8 g/dl (12.0-16.0); Mean Corpuscular HGB Conc 33 g/dl (31-36); Mean Corpuscular Hemoglobin 28 pg (27-31); Mean Corpuscular Volume 83 fL (80-97); Mean Platelet Volume 7 um3 (7.4-10.4); Red Blood Count 2.82 10^6/ul (4.0-5.4); Red Cell Distribution Width 14 % (10.5-15); White Blood Count 9.8 10^3/ul (3.5-10.8)
[2016-12-26 07:11] LABS: BUN/Creatinine Ratio 32.9 (8-20); Calcium 8.5 mg/dL (8.6-10.3); EGFR African American 45.2 (>60); EGFR Non-African American 35.1 (>60); Potassium 4.7 mmol/L (3.5-5.0)
--- NOTE | 2016-12-26 07:38 | PN ---
Progress Note - Progress Note Date of Service: 12/26/16 SOAP: Subjective: []POD # 1 C/O severe incisional pain Has not been OOB yet Fuller in place Objective: []Moderate drain output HCT 24 Neuro intact Assessment: []Slow progress post op Plan: []Increase activity level PT consult Get fuller out
[2016-12-26] MEDS: Insulin LISPRO* 1 UNITS UNIT SUBCUT SCH ×4 (08:22→20:58)
[2016-12-26] MEDS: Omeprazole CAP* 20 MG PO SCH (08:44)
[2016-12-26] MEDS: Metoprolol Tartrate TAB* 25 MG PO SCH (08:44)
[2016-12-26] MEDS ORDERED: Furosemide TAB* 20 MG PO SCH (09:00)
[2016-12-26] MEDS ORDERED: Lisinopril TAB* 5 MG PO SCH (09:00)
[2016-12-26] MEDS ORDERED: AMLODIPINE BESYLATE 10 MG PO SCH (09:00)
--- NOTE | 2016-12-26 14:08 | PN ---
Subjective Date of Service: 12/26/16 Interval History: Patient seen and examined at bedside. Patient sitting up in a chair c/o of pain from sitting up and wishing to go back to bed. Sugars controlled this AM but now elevated this PM. Hb down to 7.8 but patient denies dizziness. Family History: Unchanged from Admission Social History: Unchanged from Admission Past Medical History: Unchanged from Admission Objective Active Medications: Acetaminophen (Tylenol Tab*) 650 mg PO Q4H PRN Hydrocodone Bitart/Acetaminophen ([place] 5-325 Tab*) 2 tab PO Q4H PRN Aspirin (Aspirin Ec Low Dose*) 81 mg PO QPM HARDY Atorvastatin Calcium (Lipitor*) 20 mg PO QPM HARDY Gabapentin (Neurontin Cap(*)) 300 mg PO Q8H HARDY Insulin Glargine (Lantus(*)) 25 units SUBCUT BEDTIME HARDY Insulin Human Lispro (Humalog*) 0 units SUBCUT ACHS HARDY Metoprolol Tartrate (Lopressor Tab*) 50 mg PO QAM HARDY Morphine Sulfate (Morphine Inj (Syringe)*) 4 mg IV Q4H PRN Omeprazole (Prilosec Cap*) 20 mg PO QAM HARDY Ondansetron HCl (Zofran Inj*) 4 mg IV Q6H PRN Vital Signs Temp Pulse Resp BP Pulse Ox 98.0 F 98 20 119/72 98 12/26/16 07:21 12/26/16 07:21 12/26/16 13:04 12/26/16 07:21 12/26/16 08:00 Oxygen Devices in Use Now: None Appearance: sitting up in chair, NAD Eyes: No Scleral Icterus, PERRLA Ears/Nose/Mouth/Throat: NL Teeth, Lips, Gums, Mucous Membranes Moist Neck: NL Appearance and Movements; NL JVP Respiratory: Symmetrical Chest Expansion and Respiratory Effort, Clear to Auscultation Cardiovascular: NL Sounds; No Murmurs; No JVD, RRR Abdominal: NL Sounds; No Tenderness; No Distention, No Hepatosplenomegaly Extremities: - - 2+ edema Skin: - - back incision C/D/I; OMAR drain in place Neurological: Alert and Oriented x 3, - - decreased sensation on RLE Lines/Tubes/Other Access: Clean, Dry and Intact Peripheral IV Nutrition: Taking PO's Result Diagrams: 12/26/16 06:02 12/26/16 06:02 Assess/Plan/Problems-Billing Patient is a 71 y/o F w/ hx of CKD stage III, type 2 DM insulin dependent, HTN, HLD, B12 deficiency who underwent a decompressive lumbar laminectomy on 2016. Hospitalists were asked to assist with medical co-management. - Patient Problems (1) Status post lumbar laminectomy Comment: Management per Neurosurgery. Pain control. PT/OT. Tamela d/c this AM. Recheck H/H in AM. (2) Anemia associated with acute blood loss Comment: Acute and Chronic anemia. Chronic from CKD and B12 deficiency. Baseline Hb 9.9 and down to 7.8 this AM. Recheck in AM. (3) Diabetes mellitus Comment: Sugars up this PM. Continue Lantus - Increase to home dose of 35. Will increase sliding scale as well. Check Hb A1C (4) CKD stage 3 due to type 2 diabetes mellitus Comment: Cr 1.4 at baseline. (5) HTN (hypertension) Comment: Continue Metoprolol. Hold Lisinopril and Lasix for now. (6) HLD (hyperlipidemia) Comment: Continue Lipitor. (7) DVT prophylaxis Comment: SCDs per neurosurgery. (8) Full code status Status and Disposition: Inaptient s/p laminectomy. Dispo per neurosurgery.
[2016-12-26] MEDS: Atorvastatin* 20 MG TAB PO SCH (17:59)
[2016-12-26] MEDS: Aspirin EC Low Dose* 81 MG TAB.EC PO SCH (18:12)
[2016-12-26] MEDS: Insulin GLARGINE(*) 1 UNITS UNIT SUBCUT SCH (20:59)
[2016-12-27] MEDS: HYDROcodone/ACETAMIN 5-325 MG* 1 TAB PO PRN ×4 (01:37→21:54)
[2016-12-27] MEDS: Gabapentin CAP(*) 100 MG PO SCH ×3 (06:55→21:55)
[2016-12-27 07:01] LABS: Hematocrit 22 % (35-47); Hemoglobin 7.3 g/dl (12.0-16.0); Mean Corpuscular HGB Conc 33 g/dl (31-36); Mean Corpuscular Hemoglobin 28 pg (27-31); Mean Corpuscular Volume 84 fL (80-97); Mean Platelet Volume 7 um3 (7.4-10.4); Red Blood Count 2.61 10^6/ul (4.0-5.4); Red Cell Distribution Width 15 % (10.5-15)
[2016-12-27] MEDS: Omeprazole CAP* 20 MG PO SCH (09:27)
[2016-12-27] MEDS: Metoprolol Tartrate TAB* 25 MG PO SCH (09:27)
[2016-12-27] MEDS: Insulin LISPRO* 1 UNITS UNIT SUBCUT SCH ×4 (09:28→21:52)
--- NOTE | 2016-12-27 09:31 | PN ---
Progress Note - Progress Note Date of Service: 12/27/16 SOAP: Subjective: []POD# 2 Up in chair Feels better this am Drainage has slowed Objective: []Neuro intact 60 cc out of drain Assessment: []Slowly improving Plan: []Increase activity level
[2016-12-27] MEDS ORDERED: Polyethylene Glycol 3350* 17 GM PACKET PO PRN (13:07)
[2016-12-27] MEDS: Magnesium Hydroxide LIQ* 30 ML UDC PO PRN (14:54)
[2016-12-27] MEDS: Aspirin EC Low Dose* 81 MG TAB.EC PO SCH (17:10)
[2016-12-27] MEDS: Atorvastatin* 20 MG TAB PO SCH (17:10)
--- NOTE | 2016-12-27 17:56 | PN ---
Subjective Date of Service: 12/27/16 Interval History: Patient seen and examined at bedside. Denies fever, chills, shortness of breath , chest discomfort, N/V/D, numbness, tingling or weakness. Pt reports no BM since Saturday, difficulty initiating urine stream and some "dribbling", left LE pain (she had this pre-op). Family History: Unchanged from Admission Social History: Unchanged from Admission Past Medical History: Unchanged from Admission Objective Active Medications: Acetaminophen (Tylenol Tab*) 650 mg PO Q4H PRN Reason: PAIN Hydrocodone Bitart/Acetaminophen ([place] 5-325 Tab*) 2 tab PO Q4H PRN Reason: marked pain Aspirin (Aspirin Ec Low Dose*) 81 mg PO QPM HARDY Atorvastatin Calcium (Lipitor*) 20 mg PO QPM HARDY Gabapentin (Neurontin Cap(*)) 300 mg PO Q8H HARDY Insulin Glargine (Lantus(*)) 35 units SUBCUT BEDTIME HARDY Insulin Human Lispro (Humalog*) 0 units SUBCUT ACHS HARDY Reason: Protocol Magnesium Hydroxide (Milk Of Magnesia Liq*) 30 ml PO Q6H PRN Reason: CONSTIPATION Metoprolol Tartrate (Lopressor Tab*) 50 mg PO QAM HARDY Morphine Sulfate (Morphine Inj (Syringe)*) 4 mg IV Q4H PRN Reason: PAIN Omeprazole (Prilosec Cap*) 20 mg PO QAM HARDY Ondansetron HCl (Zofran Inj*) 4 mg IV Q6H PRN Reason: NAUSEA/VOMITING Polyethylene Glycol/Electrolytes (Miralax*) 17 gm PO DAILY PRN Reason: CONSTIPATION Vital Signs 12/26/16 12/26/16 12/26/16 17:55 19:40 19:41 Temperature 100.0 F Pulse Rate 103 Respiratory 18 20 20 Rate Blood Pressure 137/40 (mmHg) O2 Sat by Pulse 95 Oximetry 12/26/16 12/26/16 12/26/16 20:13 22:13 23:28 Temperature 100.5 F Pulse Rate 112 Respiratory 18 20 16 Rate Blood Pressure 114/39 (mmHg) O2 Sat by Pulse 94 Oximetry 12/27/16 12/27/16 12/27/16 01:37 04:13 07:37 Temperature 99.9 F 98.6 F Pulse Rate 71 94 Respiratory 20 16 16 Rate Blood Pressure 129/40 133/46 (mmHg) O2 Sat by Pulse 93 94 Oximetry 12/27/16 12/27/16 12/27/16 09:27 11:35 12:19 Temperature 98.4 F Pulse Rate 75 Respiratory 16 16 16 Rate Blood Pressure 136/37 (mmHg) O2 Sat by Pulse 96 Oximetry 12/27/16 12/27/16 12/27/16 12:25 14:54 15:24 Temperature 98.7 F Pulse Rate 91 Respiratory 16 16 18 Rate Blood Pressure 145/56 (mmHg) O2 Sat by Pulse 99 Oximetry Oxygen Devices in Use Now: None Appearance: NAD, sitting up in a chair Ears/Nose/Mouth/Throat: Mucous Membranes Moist Respiratory: Symmetrical Chest Expansion and Respiratory Effort, Clear to Auscultation Cardiovascular: NL Sounds; No Murmurs; No JVD, RRR Abdominal: NL Sounds; No Tenderness; No Distention Extremities: - - Mild edema to bilateral LE Skin: No Rash or Ulcers Neurological: Alert and Oriented x 3, NL Muscle Strength and Tone, - - Able to plantar and dorsi flex bilateral Lines/Tubes/Other Access: Clean, Dry and Intact Peripheral IV - site benign Nutrition: Taking PO's Result Diagrams: 12/27/16 05:50 12/26/16 06:02 Assess/Plan/Problems-Billing Ms. Darden is a 71 y/o F w/ hx of CKD stage III, type 2 DM insulin dependent, HTN , HLD, B12 deficiency who underwent a decompressive lumbar laminectomy on 2016. Hospitalists were asked to assist with medical co-management. - Patient Problems (1) Status post lumbar laminectomy Code(s): Z98.890 - OTHER SPECIFIED POSTPROCEDURAL STATES SNOMED Code(s): 66456122744584896 Comment: - Management per Neurosurgery. - Continue pain control, and PT/OT. (2) Anemia associated with acute blood loss Code(s): D62 - ACUTE POSTHEMORRHAGIC ANEMIA SNOMED Code(s): 798636136 Comment: - Acute and Chronic anemia. - Chronic from CKD and B12 deficiency. - Baseline Hb 9.9 and down to 7.3 this AM. Recheck in AM. (3) Diabetes mellitus Code(s): E11.9 - TYPE 2 DIABETES MELLITUS WITHOUT COMPLICATIONS SNOMED Code(s) : 96976454 Comment: - Glucose improving today, 180-270's - HgbA1C 7.6 - Continue Lantus and Lispro SS (4) CKD stage 3 due to type 2 diabetes mellitus Code(s): E11.22 - TYPE 2 DIABETES MELLITUS W DIABETIC CHRONIC KIDNEY DISEASE; N18.3 - CHRONIC KIDNEY DISEASE, STAGE 3 (MODERATE) SNOMED Code(s): 923507077210 Comment: - Cr 1.4 at baseline. (5) HTN (hypertension) Code(s): I10 - ESSENTIAL (PRIMARY) HYPERTENSION SNOMED Code(s): 75343867 Comment: - Mostly normotensive, SBO 110-140's. - Continue Metoprolol. - Resume amlodipine in AM. - Continue to hold Lasix and lisinopril for now. (6) HLD (hyperlipidemia) Code(s): E78.5 - HYPERLIPIDEMIA, UNSPECIFIED SNOMED Code(s): 72230027 Comment: - Continue Lipitor. (7) DVT prophylaxis Code(s): KKA7421 - SNOMED Code(s): 439219983 Comment: - SCDs per neurosurgery. (8) Full code status Code(s): Z78.9 - OTHER SPECIFIED HEALTH STATUS SNOMED Code(s): 190966781 Status and Disposition: Inpatient. Dispo per neurosurgery.
[2016-12-27] MEDS: Insulin GLARGINE(*) 1 UNITS UNIT SUBCUT SCH (21:52)
[2016-12-28] MEDS: Gabapentin CAP(*) 100 MG PO SCH ×3 (03:36→20:57)
[2016-12-28] MEDS: HYDROcodone/ACETAMIN 5-325 MG* 1 TAB PO PRN ×4 (03:39→21:45)
[2016-12-28] MEDS: Magnesium Hydroxide LIQ* 30 ML UDC PO PRN (03:41)
[2016-12-28 06:25] LABS: Hematocrit 23 % (35-47); Hemoglobin 7.8 g/dl (12.0-16.0)
--- NOTE | 2016-12-28 07:29 | PN ---
Progress Note - Progress Note Date of Service: 12/28/16 SOAP: Subjective: [S/p lumbar decompression and instrumented fusion L4-5 with lumbar discectomy L4 -5 on the left, POD#3. She states that she is feeling well although she continues to have generalized weakness in the lower extremities. The patient was somewhat deconditioned prior to surgery because she had been unable to perform prolonged activity secondary to radicular and low back pain. Her surgery had been postponed for medical clearance. She has been working with physical therapy post-operatively. She reports persistent numbness in the lower extremities, left worse than right. She is eating, drinking and voiding without difficulty. Denies headache, dizziness, nausea and shortness of breath, chest pain. Pain controlled with oral pain medications. ] Objective: [ Vital Signs: Temp Pulse Resp BP Pulse Ox 99.2 F 85 16 116/53 97 12/28/16 07:29 12/28/16 07:29 12/28/16 13:38 12/28/16 07:29 12/28/16 07:29 General: Patient is alert and oriented, sitting in chair. No distress. Neuro: Motor intact, mild decreased sensation in lower extremities. Extremities: 2+ edema in bilateral lower extremities. Incision: Intact and without swelling. Cory drain in place and functioning well. Cory drain output 12/25/16 12/25/16 12/25/16 14:00 18:34 19:30 Output, OMAR #1 60 110 30 12/25/16 12/26/16 12/26/16 21:46 01:00 01:55 Output, OMAR #1 30 30 10 12/26/16 12/26/16 12/27/16 05:44 14:00 00:15 Output, OMAR #1 30 30 15 12/27/16 12/27/16 12/27/16 01:47 06:00 11:30 Output, OMAR #1 15 5 15 12/27/16 12/27/16 12/27/16 14:00 18:41 22:46 Output, OMAR #1 10 2 0 12/28/16 12/28/16 04:18 13:13 Output, OMAR #1 20 30 ] Assessment: [This patient is making a slow recovery post-operatively. She will require additional physical therapy and ambulation prior to discharge home. Wound drain continues to collect large volume of fluid and requires further monitoring.] Plan: [1. Encourage ambulation and up out of bed. 2. Continue pain management. 3. Possible discharge home tomorrow. ]
[2016-12-28] MEDS: Omeprazole CAP* 20 MG PO SCH (08:41)
[2016-12-28] MEDS: amLODIPine TAB* 5 MG PO SCH (08:41)
[2016-12-28] MEDS: Metoprolol Tartrate TAB* 25 MG PO SCH (08:41)
[2016-12-28] MEDS ORDERED: Lisinopril TAB* 5 MG PO SCH (09:00)
[2016-12-28] MEDS: Insulin LISPRO* 1 UNITS UNIT SUBCUT SCH ×4 (09:27→20:57)
--- NOTE | 2016-12-28 17:10 | PN ---
Subjective Date of Service: 12/28/16 Interval History: Patient seen and examined at bedside. Denies fever, chills, shortness of breath , chest discomfort, N/V/D. Pt states that her pain is better controlled today. Pt reports numbness in bilateral LE, she had this pre-op. Pt states that she has generalized weakness, I suspect she is physical deconditioned due to being less active leading up to the surgery. Family History: Unchanged from Admission Social History: Unchanged from Admission Past Medical History: Unchanged from Admission Objective Active Medications: Acetaminophen (Tylenol Tab*) 650 mg PO Q4H PRN Reason: PAIN Hydrocodone Bitart/Acetaminophen ([place] 5-325 Tab*) 2 tab PO Q4H PRN Reason: marked pain Amlodipine Besylate (Norvasc Tab*) 10 mg PO DAILY [facility] Aspirin (Aspirin Ec Low Dose*) 81 mg PO QPM [facility] Atorvastatin Calcium (Lipitor*) 20 mg PO QPM [facility] Gabapentin (Neurontin Cap(*)) 300 mg PO Q8H [facility] Insulin Glargine (Lantus(*)) 35 units SUBCUT BEDTIME [facility] Insulin Human Lispro (Humalog*) 0 units SUBCUT ACHS [facility] Magnesium Hydroxide (Milk Of Magnesia Liq*) 30 ml PO Q6H PRN Reason: CONSTIPATION Metoprolol Tartrate (Lopressor Tab*) 50 mg PO QAM [facility] Morphine Sulfate (Morphine Inj (Syringe)*) 4 mg IV Q4H PRN Reason: PAIN Omeprazole (Prilosec Cap*) 20 mg PO QAM [facility] Ondansetron HCl (Zofran Inj*) 4 mg IV Q6H PRN Reason: NAUSEA/VOMITING Polyethylene Glycol/Electrolytes (Miralax*) 17 gm PO DAILY PRN Reason: CONSTIPATION Vital Signs 12/27/16 12/27/16 12/27/16 17:10 18:41 19:35 Temperature 99.0 F Pulse Rate 109 Respiratory 18 16 20 Rate Blood Pressure 104/49 (mmHg) O2 Sat by Pulse 96 Oximetry 12/27/16 12/28/16 12/28/16 23:54 00:07 03:35 Temperature 98.1 F 98.4 F Pulse Rate 81 87 Respiratory 16 14 16 Rate Blood Pressure 126/46 128/45 (mmHg) O2 Sat by Pulse 96 97 Oximetry 12/28/16 12/28/16 12/28/16 07:29 08:00 08:41 Temperature 99.2 F Pulse Rate 85 Respiratory 16 16 18 Rate Blood Pressure 116/53 (mmHg) O2 Sat by Pulse 97 Oximetry Oxygen Devices in Use Now: None Appearance: NAD, sitting up in a chair. Ears/Nose/Mouth/Throat: Mucous Membranes Moist Respiratory: Symmetrical Chest Expansion and Respiratory Effort, Clear to Auscultation Cardiovascular: NL Sounds; No Murmurs; No JVD, RRR Abdominal: NL Sounds; No Tenderness; No Distention Extremities: - - Trace to mild bilateral LE edema Neurological: Alert and Oriented x 3, NL Muscle Strength and Tone Lines/Tubes/Other Access: Clean, Dry and Intact Peripheral IV - site benign Nutrition: Taking PO's Result Diagrams: 12/28/16 05:43 12/26/16 06:02 Assess/Plan/Problems-Billing Ms. Darden is a 71 y/o F w/ hx of CKD stage III, type 2 DM insulin dependent, HTN , HLD, B12 deficiency who underwent a decompressive lumbar laminectomy on 2016. Hospitalists were asked to assist with medical co-management. - Patient Problems (1) Status post lumbar laminectomy Code(s): Z98.890 - OTHER SPECIFIED POSTPROCEDURAL STATES SNOMED Code(s): 96057948506118961 Comment: - Management per Neurosurgery. - HH stable. - Continue pain control, and PT/OT. (2) Anemia associated with acute blood loss Code(s): D62 - ACUTE POSTHEMORRHAGIC ANEMIA SNOMED Code(s): 954577815 Comment: - Acute and Chronic anemia. - Chronic from CKD and B12 deficiency. - Baseline Hb 9.9 and 7.8 this AM. (3) Diabetes mellitus Code(s): E11.9 - TYPE 2 DIABETES MELLITUS WITHOUT COMPLICATIONS SNOMED Code(s) : 64587251 Comment: - Glucose improving today, 160-250's - HgbA1C 7.6 - Continue Lantus and Lispro SS (4) CKD stage 3 due to type 2 diabetes mellitus Code(s): E11.22 - TYPE 2 DIABETES MELLITUS W DIABETIC CHRONIC KIDNEY DISEASE; N18.3 - CHRONIC KIDNEY DISEASE, STAGE 3 (MODERATE) SNOMED Code(s): 632339960067 Comment: - Cr 1.4 at baseline. (5) HTN (hypertension) Code(s): I10 - ESSENTIAL (PRIMARY) HYPERTENSION SNOMED Code(s): 38125581 Comment: - Mostly normotensive, SBO 110-120's. - Continue Metoprolol and amlodipine. - Resume lasix in AM. - Continue to hold lisinopril for now. (6) HLD (hyperlipidemia) Code(s): E78.5 - HYPERLIPIDEMIA, UNSPECIFIED SNOMED Code(s): 35821195 Comment: - Continue Lipitor. (7) DVT prophylaxis Code(s): XKX3739 - SNOMED Code(s): 825816962 Comment: - SCDs per neurosurgery. (8) Full code status Code(s): Z78.9 - OTHER SPECIFIED HEALTH STATUS SNOMED Code(s): 473201362 Status and Disposition: Inpatient. Dispo per neurosurgery.
[2016-12-28] MEDS: Atorvastatin* 20 MG TAB PO SCH (17:40)
[2016-12-28] MEDS: Aspirin EC Low Dose* 81 MG TAB.EC PO SCH (17:40)
[2016-12-28] MEDS: Insulin GLARGINE(*) 1 UNITS UNIT SUBCUT SCH (20:59)
[2016-12-29] MEDS: Gabapentin CAP(*) 100 MG PO SCH ×3 (03:52→21:05)
[2016-12-29] MEDS: HYDROcodone/ACETAMIN 5-325 MG* 1 TAB PO PRN ×5 (03:52→23:54)
[2016-12-29] MEDS: Insulin LISPRO* 1 UNITS UNIT SUBCUT SCH ×4 (08:07→21:05)
--- NOTE | 2016-12-29 09:34 | PN ---
Progress Note - Progress Note Date of Service: 12/29/16 SOAP: Subjective: []No events ON. Doing well. Ambulates, Tolerates PO well. Wants to go home tomorrow. Objective: VVS Afebrile. Wound s,c,d. Drain 80 cc. Drain removed. AAOx3, IGNACIO, Benedict well. Sensory grossly intact to light touch. Mild clark lower extremity edema. HT stable 23 Assessment: []71 yo f sp LDF Plan: []Encourage ambulation, PT/OT DC planning Appreciate IM input. Geraldine Fung MD
[2016-12-29] MEDS: Omeprazole CAP* 20 MG PO SCH (10:12)
[2016-12-29] MEDS: Metoprolol Tartrate TAB* 25 MG PO SCH (10:12)
[2016-12-29] MEDS: amLODIPine TAB* 5 MG PO SCH (10:13)
[2016-12-29] MEDS: Furosemide TAB* 20 MG PO SCH (10:13)
--- NOTE | 2016-12-29 11:58 | PN ---
Subjective Date of Service: 12/29/16 Interval History: Pt c/o b/l LE edema that she's had for the past months Back drain was removed by neurosurgery Family History: Unchanged from Admission Social History: Unchanged from Admission Past Medical History: Unchanged from Admission Objective Active Medications: Acetaminophen (Tylenol Tab*) 650 mg PO Q4H PRN PRN Reason: PAIN Hydrocodone Bitart/Acetaminophen ([place] 5-325 Tab*) 2 tab PO Q4H PRN PRN Reason: marked pain Last Admin: 12/29/16 08:05 Dose: 2 tab Amlodipine Besylate (Norvasc Tab*) 10 mg PO DAILY [facility] Last Admin: 12/29/16 10:13 Dose: 10 mg Aspirin (Aspirin Ec Low Dose*) 81 mg PO QPM [facility] Last Admin: 12/28/16 17:40 Dose: 81 mg Atorvastatin Calcium (Lipitor*) 20 mg PO QPM [facility] Last Admin: 12/28/16 17:40 Dose: 20 mg Furosemide (Lasix Tab*) 20 mg PO DAILY [facility] Last Admin: 12/29/16 10:13 Dose: 20 mg Gabapentin (Neurontin Cap(*)) 300 mg PO Q8H [facility] Last Admin: 12/29/16 03:52 Dose: 300 mg Insulin Glargine (Lantus(*)) 35 units SUBCUT BEDTIME [facility] Last Admin: 12/28/16 20:59 Dose: 35 unit Insulin Human Lispro (Humalog*) 0 units SUBCUT ACHS [facility] PRN Reason: Protocol Last Admin: 12/29/16 08:07 Dose: Not Given Magnesium Hydroxide (Milk Of Magnesia Liq*) 30 ml PO Q6H PRN PRN Reason: CONSTIPATION Last Admin: 12/28/16 03:41 Dose: 30 ml Metoprolol Tartrate (Lopressor Tab*) 50 mg PO QAM [facility] Last Admin: 12/29/16 10:12 Dose: 50 mg Morphine Sulfate (Morphine Inj (Syringe)*) 4 mg IV Q4H PRN PRN Reason: PAIN Last Admin: 12/26/16 03:38 Dose: 4 mg Omeprazole (Prilosec Cap*) 20 mg PO QAM [facility] Last Admin: 12/29/16 10:12 Dose: 20 mg Ondansetron HCl (Zofran Inj*) 4 mg IV Q6H PRN PRN Reason: NAUSEA/VOMITING Polyethylene Glycol/Electrolytes (Miralax*) 17 gm PO DAILY PRN PRN Reason: CONSTIPATION Vital Signs 12/28/16 12/28/16 12/28/16 13:38 15:33 17:40 Temperature 98.6 F Pulse Rate 87 Respiratory 16 16 16 Rate Blood Pressure 114/29 (mmHg) O2 Sat by Pulse 98 Oximetry 12/28/16 12/28/16 12/28/16 19:43 20:57 21:07 Temperature 98.6 F Pulse Rate 96 Respiratory 18 16 16 Rate Blood Pressure 122/44 (mmHg) O2 Sat by Pulse 97 Oximetry 12/28/16 12/28/16 12/28/16 21:45 21:49 23:20 Temperature 97.9 F Pulse Rate 78 Respiratory 16 16 18 Rate Blood Pressure 109/42 (mmHg) O2 Sat by Pulse 99 Oximetry 12/29/16 12/29/16 12/29/16 00:03 00:13 03:52 Temperature Pulse Rate Respiratory 16 16 18 Rate Blood Pressure (mmHg) O2 Sat by Pulse Oximetry 12/29/16 12/29/16 12/29/16 04:15 06:18 07:34 Temperature 98.3 F 97.5 F Pulse Rate 77 81 Respiratory 18 16 18 Rate Blood Pressure 110/41 130/51 (mmHg) O2 Sat by Pulse 98 99 Oximetry 12/29/16 08:05 Temperature Pulse Rate Respiratory 18 Rate Blood Pressure (mmHg) O2 Sat by Pulse Oximetry Oxygen Devices in Use Now: None Appearance: 71 yo F in nAD, aAOx3 Eyes: No Scleral Icterus, PERRLA Ears/Nose/Mouth/Throat: NL Teeth, Lips, Gums, Mucous Membranes Moist Neck: NL Appearance and Movements; NL JVP, Trachea Midline Respiratory: Symmetrical Chest Expansion and Respiratory Effort, Clear to Auscultation Cardiovascular: NL Sounds; No Murmurs; No JVD, RRR Abdominal: NL Sounds; No Tenderness; No Distention, No Hepatosplenomegaly Lymphatic: No Cervical Adenopathy Extremities: No Clubbing, Cyanosis, - - trace b/l ankle edema, no calf tenderness Skin: No Nodules or Sclerosis, - - lumbar incision covered with post op dressings, not removed Neurological: Alert and Oriented x 3, NL Muscle Strength and Tone Result Diagrams: 12/28/16 05:43 11/08/17 06:02 Assess/Plan/Problems-Billing Ms. Darden is a 71 y/o F w/ hx of CKD stage III, type 2 DM insulin dependent, HTN , HLD, B12 deficiency who underwent a decompressive lumbar laminectomy on 2016. Hospitalists were asked to assist with medical co-management. - Patient Problems (1) Status post lumbar laminectomy Comment: - Management per Neurosurgery. - HH low , but stable. - Continue pain control, and PT/OT. (2) Anemia associated with acute blood loss Comment: - Acute and Chronic anemia. - Chronic from CKD and B12 deficiency. - Baseline Hb 9.9 -will start iron supplement (3) Diabetes mellitus Comment: - HgbA1C 7.6 - Continue Lantus and Lispro SS (4) CKD stage 3 due to type 2 diabetes mellitus Comment: - Cr 1.4 at baseline. (5) HTN (hypertension) Comment: - controlled - Continue Metoprolol and amlodipine and lasix - Continue to hold lisinopril for now. (6) HLD (hyperlipidemia) Comment: - Continue Lipitor. (7) Leg edema Comment: b/l , chronic, suspect venous stasis -Joesph's ordered Status and Disposition: Inpatient. Dispo per neurosurgery.
[2016-12-29] MEDS: Atorvastatin* 20 MG TAB PO SCH (17:35)
[2016-12-29] MEDS: Aspirin EC Low Dose* 81 MG TAB.EC PO SCH (17:35)
[2016-12-29] MEDS: Ferrous Sulfate TAB* 325 MG PO SCH (21:05)
[2016-12-29] MEDS: Insulin GLARGINE(*) 1 UNITS UNIT SUBCUT SCH (21:06)
[2016-12-30] MEDS: Gabapentin CAP(*) 100 MG PO SCH ×3 (03:36→20:50)
[2016-12-30] MEDS: HYDROcodone/ACETAMIN 5-325 MG* 1 TAB PO PRN ×3 (08:19→20:50)
[2016-12-30] MEDS: Insulin LISPRO* 1 UNITS UNIT SUBCUT SCH ×4 (08:42→20:50)
--- NOTE | 2016-12-30 08:56 | PN ---
Progress Note - Progress Note Date of Service: 12/30/16 SOAP: Subjective: []No events ON. Doing well. Ambulates, Tolerates PO well. Patient is concerned if she would be able to take care of herself at home. Objective: []VVS Afebrile. Wound s,c,d. AAOx3, IGNACIO, Benedict well. Sensory grossly intact to light touch. Mild clark lower extremity edema stable. Assessment: []]71 yo f sp LDF Plan: []Encourage ambulation, PT/OT DC planning Appreciate IM input. Check labs today. Issac Fung MD
[2016-12-30] MEDS: amLODIPine TAB* 5 MG PO SCH (09:17)
[2016-12-30] MEDS: Omeprazole CAP* 20 MG PO SCH (09:17)
[2016-12-30] MEDS: Furosemide TAB* 20 MG PO SCH (09:17)
[2016-12-30] MEDS: Ferrous Sulfate TAB* 325 MG PO SCH ×2 (09:17→20:50)
[2016-12-30] MEDS: Metoprolol Tartrate TAB* 25 MG PO SCH (09:17)
[2016-12-30 09:24] LABS: Hematocrit 25 % (35-47); Hemoglobin 7.9 g/dl (12.0-16.0); Mean Corpuscular HGB Conc 32 g/dl (31-36); Mean Corpuscular Hemoglobin 27 pg (27-31); Mean Corpuscular Volume 84 fL (80-97); Mean Platelet Volume 7 um3 (7.4-10.4); Red Blood Count 2.92 10^6/ul (4.0-5.4); Red Cell Distribution Width 14 % (10.5-15); White Blood Count 9.7 10^3/ul (3.5-10.8)
--- NOTE | 2016-12-30 09:39 | PN ---
Subjective Date of Service: 12/30/16 Interval History: pt appears pale on eval today. Has no new complaints. Concerned about going home and her ability to get OOB by herself Family History: Unchanged from Admission Social History: Unchanged from Admission Past Medical History: Unchanged from Admission Objective Active Medications: Acetaminophen (Tylenol Tab*) 650 mg PO Q4H PRN PRN Reason: PAIN Hydrocodone Bitart/Acetaminophen ([place] 5-325 Tab*) 2 tab PO Q4H PRN PRN Reason: marked pain Last Admin: 12/30/16 08:19 Dose: 2 tab Amlodipine Besylate (Norvasc Tab*) 10 mg PO DAILY [facility] Last Admin: 12/30/16 09:17 Dose: 10 mg Aspirin (Aspirin Ec Low Dose*) 81 mg PO QPM [facility] Last Admin: 12/29/16 17:35 Dose: 81 mg Atorvastatin Calcium (Lipitor*) 20 mg PO QPM [facility] Last Admin: 12/29/16 17:35 Dose: 20 mg Ferrous Sulfate (Ferrous Sulfate Tab*) 325 mg PO BID [facility] Last Admin: 12/30/16 09:17 Dose: 325 mg Furosemide (Lasix Tab*) 20 mg PO DAILY [facility] Last Admin: 12/30/16 09:17 Dose: 20 mg Gabapentin (Neurontin Cap(*)) 300 mg PO Q8H [facility] Last Admin: 12/30/16 03:36 Dose: 300 mg Insulin Glargine (Lantus(*)) 35 units SUBCUT BEDTIME [facility] Last Admin: 12/29/16 21:06 Dose: 35 unit Insulin Human Lispro (Humalog*) 0 units SUBCUT ACHS [facility] PRN Reason: Protocol Last Admin: 12/30/16 08:42 Dose: Not Given Magnesium Hydroxide (Milk Of Magnesia Liq*) 30 ml PO Q6H PRN PRN Reason: CONSTIPATION Last Admin: 12/28/16 03:41 Dose: 30 ml Metoprolol Tartrate (Lopressor Tab*) 50 mg PO QAM [facility] Last Admin: 12/30/16 09:17 Dose: 50 mg Morphine Sulfate (Morphine Inj (Syringe)*) 4 mg IV Q4H PRN PRN Reason: PAIN Last Admin: 12/26/16 03:38 Dose: 4 mg Omeprazole (Prilosec Cap*) 20 mg PO QAM [facility] Last Admin: 12/30/16 09:17 Dose: 20 mg Ondansetron HCl (Zofran Inj*) 4 mg IV Q6H PRN PRN Reason: NAUSEA/VOMITING Polyethylene Glycol/Electrolytes (Miralax*) 17 gm PO DAILY PRN PRN Reason: CONSTIPATION Vital Signs 12/29/16 12/29/16 12/29/16 11:25 12:42 12:43 Temperature 98.0 F Pulse Rate 79 Respiratory 18 18 18 Rate Blood Pressure 119/53 (mmHg) O2 Sat by Pulse 99 Oximetry 12/29/16 12/29/16 12/29/16 14:12 15:40 16:45 Temperature 99.0 F Pulse Rate 78 Respiratory 16 20 18 Rate Blood Pressure 124/98 (mmHg) O2 Sat by Pulse 100 Oximetry 12/29/16 12/29/16 12/29/16 17:20 18:53 19:20 Temperature 98 F 98.0 F Pulse Rate 84 82 Respiratory 18 16 Rate Blood Pressure 122/69 108/46 (mmHg) O2 Sat by Pulse 100 Oximetry 12/29/16 12/29/16 12/29/16 19:31 19:59 21:05 Temperature Pulse Rate 84 Respiratory 16 18 Rate Blood Pressure 122/69 (mmHg) O2 Sat by Pulse 100 Oximetry 12/29/16 12/29/16 12/29/16 23:00 23:54 23:58 Temperature 98.5 F Pulse Rate 86 Respiratory 16 18 18 Rate Blood Pressure 125/42 (mmHg) O2 Sat by Pulse 100 Oximetry 12/30/16 12/30/16 12/30/16 02:10 03:36 04:07 Temperature 98.0 F Pulse Rate 76 Respiratory 16 16 16 Rate Blood Pressure 113/38 (mmHg) O2 Sat by Pulse 97 Oximetry 12/30/16 12/30/16 12/30/16 05:40 08:18 08:19 Temperature 98.7 F Pulse Rate 87 Respiratory 16 16 18 Rate Blood Pressure 138/51 (mmHg) O2 Sat by Pulse 100 Oximetry Oxygen Devices in Use Now: None Appearance: 71 yo f in nAD, AAOx3 Eyes: No Scleral Icterus, PERRLA Ears/Nose/Mouth/Throat: NL Teeth, Lips, Gums, Mucous Membranes Moist Neck: NL Appearance and Movements; NL JVP, Trachea Midline Respiratory: Symmetrical Chest Expansion and Respiratory Effort, Clear to Auscultation Cardiovascular: RRR, - - 1/6 GRUPO at RUSB Abdominal: NL Sounds; No Tenderness; No Distention, No Hepatosplenomegaly Lymphatic: No Cervical Adenopathy Extremities: No Clubbing, Cyanosis, - - +1 pitting pedal edema b/l Skin: No Nodules or Sclerosis, - - lumbar incision not examined Neurological: Alert and Oriented x 3, NL Muscle Strength and Tone Result Diagrams: 12/28/16 05:43 12/26/16 06:02 Assess/Plan/Problems-Billing Ms. Darden is a 71 y/o F w/ hx of CKD stage III, type 2 DM insulin dependent, HTN , HLD, B12 deficiency who underwent a decompressive lumbar laminectomy on 2016. Hospitalists were asked to assist with medical co-management. - Patient Problems (1) Status post lumbar laminectomy Comment: - Management per Neurosurgery. - HH low on 12/28/16, today with significant pallor- will recheck CBC - Continue pain control, and PT/OT. Pt needs PT eval prior to discharge, eval on 12/28/16 stated that pt needs 1 assit to get OOB (2) Anemia associated with acute blood loss Comment: - Acute and Chronic anemia. Today's CBC pending - Chronic from CKD and B12 deficiency. - Baseline Hb 9.9 -started iron supplement (3) Diabetes mellitus Comment: - HgbA1C 7.6 - Continue Lantus and Lispro SS (4) CKD stage 3 due to type 2 diabetes mellitus Comment: - Cr 1.4 at baseline. (5) HTN (hypertension) Comment: - controlled - Continue Metoprolol and amlodipine and lasix - Continue to hold lisinopril for now till discharge (6) HLD (hyperlipidemia) Comment: - Continue Lipitor. (7) Leg edema Comment: b/l , chronic, suspect venous stasis -Joesph's ordered Status and Disposition: Inpatient. Dispo per neurosurgery.
[2016-12-30] MEDS: Atorvastatin* 20 MG TAB PO SCH (17:25)
[2016-12-30] MEDS: Aspirin EC Low Dose* 81 MG TAB.EC PO SCH (17:25)
[2016-12-30] MEDS: Insulin GLARGINE(*) 1 UNITS UNIT SUBCUT SCH (20:50)
[2016-12-31] MEDS: Gabapentin CAP(*) 100 MG PO SCH (03:31)
[2016-12-31] MEDS: HYDROcodone/ACETAMIN 5-325 MG* 1 TAB PO PRN (07:39)
--- NOTE | 2016-12-31 07:40 | PN ---
Progress Note - Progress Note Date of Service: 12/31/16 SOAP: Subjective: []Doing well Up in chair Drain removed on Saturday Objective: []Neuro intact Wound OK Assessment: []Satis post op course Plan: []D/C today D/C Instructions given
[2016-12-31] MEDS: Insulin LISPRO* 1 UNITS UNIT SUBCUT SCH (07:55)
--- NOTE | 2016-12-31 08:33 | PN ---
Subjective Date of Service: 12/31/16 Interval History: Pt is ready to go home. Family History: Unchanged from Admission Social History: Unchanged from Admission Past Medical History: Unchanged from Admission Objective Active Medications: Acetaminophen (Tylenol Tab*) 650 mg PO Q4H PRN PRN Reason: PAIN Hydrocodone Bitart/Acetaminophen ([place] 5-325 Tab*) 2 tab PO Q4H PRN PRN Reason: marked pain Last Admin: 12/31/16 07:39 Dose: 2 tab Amlodipine Besylate (Norvasc Tab*) 10 mg PO DAILY [facility] Last Admin: 12/30/16 09:17 Dose: 10 mg Aspirin (Aspirin Ec Low Dose*) 81 mg PO QPM [facility] Last Admin: 12/30/16 17:25 Dose: 81 mg Atorvastatin Calcium (Lipitor*) 20 mg PO QPM [facility] Last Admin: 12/30/16 17:25 Dose: 20 mg Ferrous Sulfate (Ferrous Sulfate Tab*) 325 mg PO BID [facility] Last Admin: 12/30/16 20:50 Dose: 325 mg Furosemide (Lasix Tab*) 20 mg PO DAILY [facility] Last Admin: 12/30/16 09:17 Dose: 20 mg Gabapentin (Neurontin Cap(*)) 300 mg PO Q8H [facility] Last Admin: 12/31/16 03:31 Dose: 300 mg Insulin Glargine (Lantus(*)) 35 units SUBCUT BEDTIME [facility] Last Admin: 12/30/16 20:50 Dose: 35 unit Insulin Human Lispro (Humalog*) 0 units SUBCUT ACHS [facility] PRN Reason: Protocol Last Admin: 12/31/16 07:55 Dose: Not Given Magnesium Hydroxide (Milk Of Magnesia Liq*) 30 ml PO Q6H PRN PRN Reason: CONSTIPATION Last Admin: 12/28/16 03:41 Dose: 30 ml Metoprolol Tartrate (Lopressor Tab*) 50 mg PO QAM [facility] Last Admin: 12/30/16 09:17 Dose: 50 mg Morphine Sulfate (Morphine Inj (Syringe)*) 4 mg IV Q4H PRN PRN Reason: PAIN Last Admin: 12/26/16 03:38 Dose: 4 mg Omeprazole (Prilosec Cap*) 20 mg PO QAM [facility] Last Admin: 12/30/16 09:17 Dose: 20 mg Ondansetron HCl (Zofran Inj*) 4 mg IV Q6H PRN PRN Reason: NAUSEA/VOMITING Polyethylene Glycol/Electrolytes (Miralax*) 17 gm PO DAILY PRN PRN Reason: CONSTIPATION Vital Signs 12/30/16 12/30/16 12/30/16 10:43 11:33 12:04 Temperature 98.9 F Pulse Rate 80 Respiratory 18 18 18 Rate Blood Pressure 115/70 (mmHg) O2 Sat by Pulse 100 Oximetry 12/30/16 12/30/16 12/30/16 13:43 15:19 16:36 Temperature 98.6 F Pulse Rate 77 Respiratory 18 18 18 Rate Blood Pressure 112/38 (mmHg) O2 Sat by Pulse 100 Oximetry 12/30/16 12/30/16 12/30/16 18:32 19:17 19:18 Temperature 97.3 F Pulse Rate 86 Respiratory 18 18 16 Rate Blood Pressure 115/54 (mmHg) O2 Sat by Pulse 98 Oximetry 12/30/16 12/30/16 12/30/16 20:50 22:47 23:31 Temperature 98.6 F Pulse Rate 84 Respiratory 18 16 18 Rate Blood Pressure 122/38 (mmHg) O2 Sat by Pulse 99 Oximetry 12/31/16 12/31/16 12/31/16 03:31 03:47 07:39 Temperature 98.1 F Pulse Rate 79 Respiratory 18 16 16 Rate Blood Pressure 116/42 (mmHg) O2 Sat by Pulse 98 Oximetry Oxygen Devices in Use Now: None Appearance: 71 yo f in nAD, aAOx3 Eyes: No Scleral Icterus, PERRLA Ears/Nose/Mouth/Throat: NL Teeth, Lips, Gums, Mucous Membranes Moist Neck: NL Appearance and Movements; NL JVP, Trachea Midline Respiratory: Symmetrical Chest Expansion and Respiratory Effort, Clear to Auscultation Cardiovascular: RRR, - - 2/ 6 GRUPO Abdominal: NL Sounds; No Tenderness; No Distention, No Hepatosplenomegaly Lymphatic: No Cervical Adenopathy Extremities: No Clubbing, Cyanosis, - - trace ankle edema b/l Skin: No Nodules or Sclerosis, - - surgical dressing in lumbar area not removed Neurological: Alert and Oriented x 3, NL Muscle Strength and Tone Result Diagrams: 12/30/16 09:10 12/26/16 06:02 Assess/Plan/Problems-Billing Ms. Darden is a 71 y/o F w/ hx of CKD stage III, type 2 DM insulin dependent, HTN , HLD, B12 deficiency who underwent a decompressive lumbar laminectomy on 2016. Hospitalists were asked to assist with medical co-management. - Patient Problems (1) Status post lumbar laminectomy Comment: d/c home today (2) Anemia associated with acute blood loss Comment: - Acute and Chronic anemia. Stable - Chronic from CKD and B12 deficiency. - Baseline Hb 9.9 -prescribed iron supplement for discharge (3) Diabetes mellitus Comment: - HgbA1C 7.6 - Continue home meds at discharge (4) CKD stage 3 due to type 2 diabetes mellitus Comment: - Cr 1.4 at baseline. (5) HTN (hypertension) Comment: - controlled - Continue Metoprolol and amlodipine, lisinopril and lasix at discharge (6) HLD (hyperlipidemia) Comment: - Continue Lipitor. (7) Leg edema Comment: b/l , chronic, suspect venous stasis Status and Disposition: Discharge per neurosurgery, medically ready for d/c
[2016-12-31 09:33] VITALS: BP 123/50
[2016-12-31] MEDS: Furosemide TAB* 20 MG PO SCH (09:46)
[2016-12-31] MEDS: Metoprolol Tartrate TAB* 25 MG PO SCH (09:46)
[2016-12-31] MEDS: Ferrous Sulfate TAB* 325 MG PO SCH (09:46)
[2016-12-31] MEDS: amLODIPine TAB* 5 MG PO SCH (09:47)
[2016-12-31] MEDS: Omeprazole CAP* 20 MG PO SCH (09:47)
--- NOTE | 2017-01-05 02:26 | OP ---
DATE OF OPERATION: 12/25/16 - ROOM #340 DATE OF : 41 PRIMARY SURGEON: J Carlos Johnson MD FAMILY PRACTITIONER: Dr. Joseph Fung ANESTHESIA: General. PRE-OP DIAGNOSES: Lumbar spinal stenosis at L4-5 with spondylolisthesis L4-5, recurrent herniated nucleus pulposus L4-5 on the left. POST-OP DIAGNOSES: Lumbar spinal stenosis at L4-5 with spondylolisthesis L4-5, recurrent herniated nucleus pulposus L4-5 on the left. OPERATIVE PROCEDURE: Lumbar decompressive laminectomy L4-5 with harvesting of autograft for fusion, lateral fusion L4-5 with nonsegmental posterior instrumentation, stereotactic navigation. DESCRIPTION OF PROCEDURE: After satisfactory general anesthesia was obtained, the patient was placed on the Raz table in the prone position. The previous lumbar incision was clipped, prepped, and draped in a sterile manner for her revision, decompressive surgery, and fusion. The incision was infiltrated with 1% Xylocaine with epinephrine after which it was turned down sharply to the level of the lumbar fascia and scar tissue. The posterior elements from L3 to the sacrum were dissected free utilizing combination of sharp and blunt dissection. The dissection was carried out laterally until the transverse processes of L4 and L5 were identified. Once wide bilateral exposure had been obtained, the [employer] O-arm intraoperative CT scanner was brought into the field and CT images acquired for utilization of the [employer] intraoperative navigation system. The images were reviewed and Medtronic pedicle screws placed into the L4 and L5 vertebral bodies utilizing stereotactic navigation. These screws were 6.5 mm in diameter screws and 45 mm in length screws. This was initially carried out at the L4 level followed by the L5 level. Following placement of the screws, an additional spin was performed with the O-arm and the screws were noted to be in satisfactory position. Attention was then directed to the decompression and the spinous process of L3 was removed and harvested for use in later autograft during the procedure. Normal dura at the L3-4 interspace was then visualized and beginning at this level and extending inferiorly into scar tissue, a generous decompression was carried out. Preoperative x-ray studies had suggested a recurrent disk herniation on the left side. The operating microscope was brought into the field and the remainder of the procedure done under microscopic visualization. Projecting beneath the dura at this level was noted to be firm disk material likely secondary to her spondylolisthesis at this level. Attempts were made to decompress this heaped up disk material particularly on the left side, which was her most symptomatic side. It was felt that a satisfactory decompression had been achieved. The L4 nerve root was seen and noted to be completely free in its course. After assuring adequate hemostasis, bone graft which had been a combination of autograft and allograft as well as bony matrix was laid out along the transverse processes bilaterally from L4- L5. A drain was then placed in the epidural space and tunneled out towards the left side. The fascia was then reapproximated with 0 Vicryl suture. The subcutaneous tissue was closed with 3-0 Vicryl suture and the skin closed with skin clips. The estimated blood loss was 200 mL. The final sponge , padding, and needle counts were correct. The patient was taken to the recovery room, extubated and in stable condition. [id number]/[facility] #: [id number] AYAH
== END 2016-12-31 10:05 | disposition home or self-care (01) | DRG 460 ==
LOC: AA 12-25 06:07 → SSU 12-25 15:15
PROVIDERS: ADMIT Neurological Surgery; ATTEND Internal Medicine
PROC: 0SG0071 Fusion of Lumbar Vertebral Joint with Autologous Tissue Substitute, Posterior Approach, Posterior Column, Open Approach (ICD-10-PCS; 2016-12-25)
PROC: 01NB0ZZ Release Lumbar Nerve, Open Approach (ICD-10-PCS; 2016-12-25)
PROC: 8E0WXBZ Computer Assisted Procedure of Trunk Region (ICD-10-PCS; 2016-12-25)
PROC: 0QB00ZZ Excision of Lumbar Vertebra, Open Approach (ICD-10-PCS; principal; 2016-12-25 07:45)
DX: M43.16 Spondylolisthesis, lumbar region (principal); D51.9 Vitamin B12 deficiency anemia, unspecified; E11.22 Type 2 diabetes mellitus with diabetic chronic kidney disease; D62 Acute posthemorrhagic anemia; M48.061 Spinal stenosis, lumbar region without neurogenic claudication; N18.3 Chronic kidney disease, stage 3 (moderate); E66.3 Overweight; I12.9 Hypertensive chronic kidney disease with stage 1 through stage 4 chronic kidney disease, or unspecified chronic kidney disease; M51.26 Other intervertebral disc displacement, lumbar region; E78.5 Hyperlipidemia, unspecified; M19.90 Unspecified osteoarthritis, unspecified site; D63.1 Anemia in chronic kidney disease; R60.0 Localized edema; Z98.49 Cataract extraction status, unspecified eye; Z82.49 Family history of ischemic heart disease and other diseases of the circulatory system; Z88.1 Allergy status to other antibiotic agents; Z68.37 Body mass index [BMI] 37.0-37.9, adult; Z82.5 Family history of asthma and other chronic lower respiratory diseases; Z83.2 Family history of diseases of the blood and blood-forming organs and certain disorders involving the immune mechanism
CPT/HCPCS: 36415; 72100; 76000; 80048; 83036; 85014; 85018; 85025; 86850; 86900; 86901; A9270-GY; C1713; C1776; J0330; J0690; J1170; J2001; J2250; J2270; J2405; J2704; J2765; J3010

== ENCOUNTER 2016-12-01 10:47 | Emergency (ER) | payer MEDICARE, BC ==
[2016-12-01 11:02] VITALS: BP 152/58
--- NOTE | 2016-12-01 11:55 | UC ---
Complaint Female HPI - HPI Summary HPI Summary: 71 Y/O female being seen for C/O dysuria and frequency x 3 days. Denies flank pain, abdominal pain, fever or chills. States has stage 3 renal failure. Recent labs - GFR 33, CrCl 32. She has follow up with nephrology later this week. Medical history and medications have been reviewed. - History Of Current Complaint Chief Complaint: UCGU Stated Complaint: UTI Time Seen by Provider: 12/01/16 11:32 Hx Obtained From: Patient Onset/Duration: Gradual Onset Timing: Constant Severity Initially: Mild Severity Currently: Mild Pain Intensity: 0 Pain Scale Used: 0-10 Numeric Character: Burning Aggravating Factor(s): Urination Alleviating Factor(s): Nothing Associated Signs And Symptoms: Positive: Negative - Allergies/Home Medications Allergies/Adverse Reactions: Allergies Allergy/AdvReac Type Severity Reaction Status Date / Time Levofloxacin [From Levaquin] AdvReac Intermediate Nausea And Verified 12/01/16 11:02 Vomiting PMH/Surg Hx/FS Hx/Imm Hx Endocrine History: Diabetes Cardiovascular History: Hypertension - Surgical History Surgical History: Yes Surgery Procedure, Year, and Place: LUMBAR spinal surgery 08/2016. [facility] [place] [facility] [place] 2006 (REPAIRED WITH SCLERAL BUCKLE - [place] TO SCAN PER DR RUVALCABA.);- [place]. bilateral cataract extractions with IOL's - [facility] - Family History Known Family History: Positive: Unknown, Diabetes - Social History Alcohol Use: None Substance Use Type: None Smoking Status (MU): Never Smoked Tobacco Have You Smoked in the Last Year: No - Immunization History Most Recent Influenza Vaccination: fall 2016 Review of Systems Constitutional: Negative Skin: Negative Eyes: Negative ENT: Negative Respiratory: Negative Cardiovascular: Negative Gastrointestinal: Negative Genitourinary: Dysuria, Frequency Motor: Negative Neurovascular: Negative Musculoskeletal: Negative Neurological: Negative Psychological: Negative Is Patient Immunocompromised?: No All Other Systems Reviewed And Are Negative: Yes Physical Exam Triage Information Reviewed: Yes Appearance: Well-Appearing Vital Signs: Initial Vital Signs Temp 98.5 F 12/01/16 10:58 Pulse 98 12/01/16 10:58 Resp 16 12/01/16 10:58 BP 152/58 12/01/16 10:58 Pulse Ox 98 12/01/16 10:58 Vital Signs Reviewed: Yes Respiratory Exam: Normal Respiratory: Positive: Lungs clear, Normal breath sounds, No respiratory distress Cardiovascular Exam: Normal Cardiovascular: Positive: RRR Abdominal Exam: Normal Abdomen Description: Positive: Nontender Bowel Sounds: Positive: Present Musculoskeletal Exam: Normal Musculoskeletal: Positive: Strength Intact Neurological Exam: Normal Neurological: Positive: Alert Psychological Exam: Normal Skin Exam: Normal Complaint Female Dx - Differential Dx/Diagnosis Differential Diagnosis/HQI/PQRI: Renal Colic, Urinary Tract Infection Provider Diagnoses: UTI Discharge - Discharge Plan Condition: Stable Disposition: HOME Patient Education Materials: Urinary Tract Infection in Women (ED) Additional Instructions: Please take antibiotics as directed. Keep follow up appointments as scheduled with your primary care physician and specialists. Return to primary care or urgent care for worsening symptoms, fever, chills or flank pain.
== END 2016-12-01 12:07 | disposition home or self-care (01) ==
LOC: UCEAST 10:47
DX: N39.0 Urinary tract infection, site not specified (principal); I10 Essential (primary) hypertension; E11.9 Type 2 diabetes mellitus without complications; Z88.1 Allergy status to other antibiotic agents
CPT/HCPCS: 81003; 87077; 87086; 87186; 99212; G0463

== ENCOUNTER 2017-02-22 11:37 | Emergency (ER) | payer MEDICARE, BC ==
[2017-02-22 11:55] VITALS: BP 162/71
--- NOTE | 2017-02-22 12:03 | UC ---
Complaint Female HPI - HPI Summary HPI Summary: 71 y/o WF presents with urinary pressure and frequency for the last 5 days. She tells me that she has had at least 3 UTIs this year, most recent one was in November 2016 and she was treated with Keflex for 7 days with good relief. Currently she denies fever, chills, SOB, chest pain, abdominal pain, n/v/d/c, flank pain, or hematuria. - History Of Current Complaint Chief Complaint: UCGU Stated Complaint: POSS UTI Time Seen by Provider: 02/22/17 12:02 Hx Obtained From: Patient Onset/Duration: Gradual Onset Timing: Constant Severity Initially: Mild Severity Currently: Moderate Pain Intensity: 7 - Allergies/Home Medications Allergies/Adverse Reactions: Allergies Allergy/AdvReac Type Severity Reaction Status Date / Time Levofloxacin [From Levaquin] AdvReac Intermediate Nausea And Verified 02/22/17 11:52 Vomiting PMH/Surg Hx/FS Hx/Imm Hx Endocrine History: Diabetes, Dyslipidemia Cardiovascular History: Hypertension GI/ History: Gastroesophageal Reflux - Surgical History Surgical History: Yes Surgery Procedure, Year, and Place: LUMBAR spinal surgery 08/2016. c-sections x3 - [facility]. wisdom teeth extraction - [facility] – [place]. RETINA DETACHMENT 2006 (REPAIRED WITH SCLERAL BUCKLE - [place] TO SCAN PER DR RUVALCABA.);- [place]. bilateral cataract extractions with IOL's - [facility] - Family History Known Family History: Positive: Unknown, Diabetes - Social History Occupation: Retired Alcohol Use: None Substance Use Type: None Smoking Status (MU): Never Smoked Tobacco Have You Smoked in the Last Year: No - Immunization History Most Recent Influenza Vaccination: fall 2016 Most Recent Pneumonia Vaccination: 2013 Review of Systems Constitutional: Negative Skin: Negative Respiratory: Negative Cardiovascular: Negative Gastrointestinal: Negative Genitourinary: Frequency, Other - Bladder pressure All Other Systems Reviewed And Are Negative: Yes Physical Exam Triage Information Reviewed: Yes Appearance: Well-Appearing, Well-Nourished Vital Signs: Initial Vital Signs Temp 97.8 F 02/22/17 11:53 Pulse 95 02/22/17 11:53 Resp 17 02/22/17 11:53 BP 162/71 02/22/17 11:53 Pulse Ox 98 02/22/17 11:53 Vital Signs Reviewed: Yes Neck: Positive: Supple, Nontender, No Lymphadenopathy Respiratory: Positive: Chest non-tender, Lungs clear, Normal breath sounds Cardiovascular: Positive: RRR, No Murmur, Pulses Normal Abdomen Description: Positive: Nontender, No Organomegaly, Soft. Negative: CVA Tenderness (R), CVA Tenderness (L), Distended, Guarding Bowel Sounds: Positive: Present Neurological: Positive: Alert Psychological: Positive: Age Appropriate Behavior Skin: Negative: rashes Complaint Female Dx - Course Course Of Treatment: UA with 1+ Leuks, trace blood, and trace protein. Will send for culture. Rx for Keflex as her cultures previously have been sensitive to this. - Differential Dx/Diagnosis Differential Diagnosis/HQI/PQRI: Urinary Tract Infection Provider Diagnoses: UTI Discharge - Discharge Plan Condition: Stable Disposition: HOME Prescriptions: Cephalexin CAP* [Keflex CAP*] 500 mg PO BID #14 cap Patient Education Materials: Urinary Tract Infection in Women (ED) Referrals: Randall Stanley MD [Primary Care Provider] - Additional Instructions: If you develop a fever, shortness of breath, chest pain, new or worsening symptoms - please call your PCP or go to the ED. Your blood pressure was high at todays visit. Please see your primary provider within 4 weeks for recheck and re-evaluation.
== END 2017-02-22 12:27 | disposition home or self-care (01) ==
LOC: UCEAST 11:37
DX: N39.0 Urinary tract infection, site not specified (principal); Z88.1 Allergy status to other antibiotic agents; E11.9 Type 2 diabetes mellitus without complications; I10 Essential (primary) hypertension
CPT/HCPCS: 81003; 87086; 99212; G0463

== ENCOUNTER 2017-03-07 10:47 | Emergency (ER) | payer MEDICARE, BC ==
[2017-03-07 11:16] VITALS: BP 170/60
--- NOTE | 2017-03-07 12:13 | UC ---
Complaint Female HPI - HPI Summary HPI Summary: 71 yo diabetic with history of UTI's, with treatment of suspected UTI on 02/22. Reviewed, and culture was negative. Symptoms never resolved. She episodiccally takes azo--has no symptoms of flank pain, fever, vomiting or nausea. Primary sx are urgency and hesitancy and frequnecy. today's UA is + for blood; unaware of any concerns of chronic hematuria. Does have occasional LLQ discomfort at night, attributed to constipation secondary to iron use. Hx of CKD followed by Dr. Parkinson. - History Of Current Complaint Chief Complaint: UCGU Stated Complaint: UTI Time Seen by Provider: 03/07/17 11:54 Hx Obtained From: Patient Onset/Duration: Gradual Onset, Lasting Weeks - 2 Timing: Intermittent Severity Initially: Moderate Severity Currently: Moderate Character: Burning, Cramping Aggravating Factor(s): Urination Associated Signs And Symptoms: Positive: Negative - has had recent back surgery , healing well, now off hydrocodone. - Allergies/Home Medications Allergies/Adverse Reactions: Allergies Allergy/AdvReac Type Severity Reaction Status Date / Time Levofloxacin [From Levaquin] AdvReac Intermediate Nausea And Verified 03/07/17 11:16 Vomiting PMH/Surg Hx/FS Hx/Imm Hx - Additional Past Medical History Additional PMH: recent treatement of iron deficinecy anemia. Endocrine History: Diabetes Cardiovascular History: Hypertension - Surgical History Surgical History: Yes Surgery Procedure, Year, and Place: LUMBAR spinal surgery 08/2016 x 2. c- sections x[facility] - [facility]. [place] [facility] [place]ACH[place] 2006 ( REPAIRED WITH SCLERAL BUCKLE - [place] TO SCAN PER DR RUVALCABA.);- [place]. bilateral cataract extractions with IOL's - [facility] - Family History Known Family History: Positive: Diabetes - Social History Occupation: Retired Lives: Alone Alcohol Use: None Substance Use Type: None Smoking Status (MU): Never Smoked Tobacco Have You Smoked in the Last Year: No - Immunization History Most Recent Influenza Vaccination: fall 2016 Most Recent Pneumonia Vaccination: 2013 Review of Systems Constitutional: Negative Skin: Negative Eyes: Negative ENT: Negative Respiratory: Negative Cardiovascular: Negative Gastrointestinal: Abdominal Pain - mild LLQ pain attributed to constipation. Present at night. Genitourinary: Frequency, Urgency Motor: Negative Neurovascular: Negative Musculoskeletal: Myalgia, Other: - back pain resolving post lumbar surgery in December. Neurological: Negative Psychological: Negative Is Patient Immunocompromised?: No All Other Systems Reviewed And Are Negative: Yes Physical Exam Triage Information Reviewed: Yes Appearance: Well-Appearing, Obese, Other: - declined getting to exam table due to sense of dizziness she has with use of gabapentin. Vital Signs: Initial Vital Signs Temp 98.6 F 03/07/17 11:10 Pulse 83 03/07/17 11:10 Resp 18 03/07/17 11:10 BP 170/60 03/07/17 11:10 Pulse Ox 100 03/07/17 11:10 Neck: Positive: Supple, Nontender Respiratory: Positive: Lungs clear, Normal breath sounds Cardiovascular: Positive: RRR, No Murmur Abdomen Description: Positive: Nontender, Soft Neurological: Positive: Alert, Muscle Tone Normal Skin Exam: Other - well healed scar in the lumbar area. Diagnostics - Laboratory Diagnostic Studies Completed/Ordered: UA with blood, neg nitrites. Complaint Female Dx - Course Course Of Treatment: possible UTi, but given recent negative culture it is possible that there is another cause to lower uterine symptoms. Will culture, initiate treatment, advised follow up with PMD early next week. - Differential Dx/Diagnosis Provider Diagnoses: possible UTi, hematuria. Discharge - Discharge Plan Condition: Stable Disposition: HOME Prescriptions: Sulfamethox/Trimethoprim DS* [Bactrim DS 800/160 TAB*] 1 tab PO BID #14 tab Patient Education Materials: Urinary Traction Infection in Older Adults (ED) Referrals: Randall Stanley MD [Primary Care Provider] - Additional Instructions: Urine culture will be reported on 03/10 or 03/11. Begin course of bactrim for treatment of possible urinary infection. Because the culture was negative on 02/22, please ensure that you have a follow up with Dr García next week to review other possible causes of bladder irritabilty and to decide if further work up of blood in the urine is needed.
--- NOTE | 2017-03-08 21:05 | UC ---
- Progress Note Progress Note: Urine culture negative. She has had ongoing urinary symptoms with 2 negative urine cultures and failure of keflex within the last 14 days. She may stop Bactrim. Follow up with Dr. García as advised by Dr. Mosqueda at last visit. Course/Dx - Course Course Of Treatment: possible UTi, but given recent negative culture it is possible that there is another cause to lower uterine symptoms. Will culture, initiate treatment, advised follow up with PMD early next week.
== END 2017-03-07 12:41 | disposition home or self-care (01) ==
LOC: UCEAST 10:47
DX: R31.9 Hematuria, unspecified (principal); R35.0 Frequency of micturition; R39.11 Hesitancy of micturition; R10.32 Left lower quadrant pain; Z87.440 Personal history of urinary (tract) infections; I10 Essential (primary) hypertension; E66.9 Obesity, unspecified; Z88.1 Allergy status to other antibiotic agents
CPT/HCPCS: 81003; 87086; 99212; G0463

== ENCOUNTER 2017-08-02 06:40 | Day surgery (SDC) | payer MEDICARE, BC ==
--- NOTE | 2017-07-31 22:10 | HP ---
CC: Dr. Randall Stanley; Dr. Jose Alfredo Parkinson; Dr. Bell * ADMITTING HISTORY AND PHYSICAL: DATE OF ADMISSION: 08/02/17 ADMITTING DIAGNOSIS: Bladder lesion. PLANNED PROCEDURE: Cystoscopy, excision biopsy of bladder lesion. SURGEON: Dom Cisse MD HISTORY OF PRESENT ILLNESS: Donna Darden is a 71-year-old lady with a history of voiding dysfunction. She had undergone cystoscopy in June of 2017, which revealed about a 3 to 4 cm area in the anterior wall on the right side of the bladder with localized hyperemic mucosa. This may represent focal carcinoma in situ or a localized transitional cell neoplasm, and she is now being brought in for excision biopsies of the same. PAST MEDICAL HISTORY: Significant for: 1. Diabetes mellitus. 2. Hypertension. 3. High cholesterol. 4. Anemia. 5. Chronic kidney disease. PAST SURGICAL HISTORY: Significant for back surgeries on 2 separate occasions in 2016 and 3 C-sections and also left retinal surgery. MEDICATIONS ON ADMISSION: 1. Amlodipine 10 mg daily. 2. Metoprolol 50 mg daily. 3. Aspirin 81 mg daily. 4. Lantus injection 35 units daily p.m. 5. Humalog insulin 6 units before meals. 6. Lipitor 40 mg daily. 7. Lisinopril 5 mg daily. ALLERGIES: No known drug allergies. PHYSICAL EXAMINATION GENERAL: Reveals a pleasant elderly lady. VITAL SIGNS: Blood pressure is 138/80, pulse 87 per minute and regular, oxygen saturation 98% on room air. LUNGS: Clear bilaterally. CARDIOVASCULAR: Regular rate and rhythm. S1, S2. ABDOMEN: Soft without masses. IMPRESSION: A 71-year-old lady with above described bladder lesion. PLAN: Planned procedure is cystoscopy, excision biopsies of bladder lesion. [id number]/[facility] #: [id number] [facility]
[~2017-08-02 06:40] MED LIST changes: -Buffered Lidocaine 0.9% SYRIN* 5 ML/SYR SYRINGE ONE; +Famotidine IV* 10 MG/ML 2 ML (20 mg) IV ONE; +Metoclopramide IV* 5 MG/ML 2 ML VIAL IV SLOW PU ONE; -ceFAZolin 2 GM PREMIX (*) 2 GM/50 ML BAG IVPB ONE
[2017-08-02] MEDS ORDERED: Famotidine IV* 10 MG/ML 2 ML (20 mg) ONE (06:58)
[2017-08-02] MEDS ORDERED: Metoclopramide IV* 5 MG/ML 2 ML VIAL ONE (06:58)
[2017-08-02] MEDS ORDERED: cefTRIAXone(*) 2 GM ADDV.VIAL IVPB ONE (06:58)
[2017-08-02] MEDS ORDERED: Buffered Lidocaine 0.9% SYRIN* 5 ML/SYR SYRINGE ONE (06:59)
[2017-08-02] MEDS ORDERED: Midazolam* 1 MG/ML 2 ML VIAL (2 MG) ONE (08:17)
[2017-08-02] MEDS ORDERED: fentaNYL* 50 MCG/ML 2 ML VIAL (100 MCG VIAL) ONE (08:17)
[2017-08-02] MEDS ORDERED: Furosemide IV* 10 MG/ML 2 ML VIAL (20 MG) ONE (08:54)
[2017-08-02] MEDS ORDERED: EPHEDrine (Pressors)* 50 MG/ML VIAL ONE (08:57)
[2017-08-02] MEDS ORDERED: Naloxone* 0.4 MG/ML 1 ML VIAL IV PRN (09:29)
[2017-08-02] MEDS ORDERED: fentaNYL* 50 MCG/ML 2 ML VIAL (100 MCG VIAL) IV PRN (09:29)
[2017-08-02] MEDS ORDERED: Ondansetron ODT TAB* 4 MG PO PRN (09:29)
[2017-08-02] MEDS ORDERED: Propofol* 10 MG/ML 20 ML BTL IV PUSH ONE (10:10)
[2017-08-02 11:33] VITALS: BP 170/78
--- NOTE | 2017-08-02 12:15 | OP ---
CC: Randall Stanley MD * DATE OF OPERATION: 08/02/17 - [facility] DATE OF : 41 SURGEON: Dom Cisse MD ANESTHESIOLOGIST: Dr. Boyce. ANESTHESIA: General. PRE-OP DIAGNOSIS: Bladder lesion. POST-OP DIAGNOSIS: Bladder lesion. OPERATIVE PROCEDURE: Cystoscopy, excision biopsies, and fulguration of bladder lesion (3 to 4 cm). COMPLICATIONS: None. ESTIMATED BLOOD LOSS: Minimal. INDICATIONS: Donna Darden is a 71-year-old lady who was evaluated and noted to have a persistent bladder lesion as described above. OPERATIVE FINDINGS: A 3 to 4 cm area anterior bladder wall with hyperemic mucosa. POSTOPERATIVE CONDITION: Stable. DESCRIPTION OF PROCEDURE: After induction of general anesthesia, the patient was placed in dorsal lithotomy position. Sequential compression devices were in place and functioning. Initial cystoscopy revealed normally located right and left ureteral orifices. The above described lesion was noted in the anterior bladder wall on the right side. The remainder of the bladder was unremarkable. Using the cold cup biopsy forceps, excision biopsies of the lesion were carried out and the biopsies were sent for histopathology. Using the Bugbee electrocautery, the edges and the base were carefully cauterized. Hemostasis appeared satisfactory at the end of the procedure and there was no evidence of bladder perforation noted. An 18-Wolof Rapp was placed for temporary bladder drainage. The patient tolerated the procedure satisfactorily and was transferred back to the recovery area in stable condition. [id number]/[facility] #: [id number] MTDD
== END 2017-08-02 11:58 | disposition home or self-care (01) ==
LOC: OR 06:40
PROVIDERS: ATTEND Urology
DX: N32.9 Bladder disorder, unspecified (principal); E11.9 Type 2 diabetes mellitus without complications; Z79.4 Long term (current) use of insulin; E78.00 Pure hypercholesterolemia, unspecified; N18.9 Chronic kidney disease, unspecified; I12.9 Hypertensive chronic kidney disease with stage 1 through stage 4 chronic kidney disease, or unspecified chronic kidney disease; D64.9 Anemia, unspecified; M19.90 Unspecified osteoarthritis, unspecified site; G62.9 Polyneuropathy, unspecified
CPT/HCPCS: 88305; J0696; J1940; J2250; J2704; J2765; J3010

== ENCOUNTER 2017-09-10 11:21 | Emergency (ER) | payer MEDICARE, BC ==
--- OUTSIDE RECORDS SUMMARY | 2017-09-10 11:32 | XMS REPORT ---
:1945 External Reference #:[id number] Author Organization [facility] Address [address] [place] [address] Phone [phone] Care Team Providers Name Role Phone Manuel Satnley M.D. Primary Care Physician Unavailable Payers Type Date Identification Numbers Payment Provider Subscriber Medicare Primary Policy Number: [id number] Medicare - NGS Donna Gautam Adelso PayID: [id number] [facility] [place] [address] Medigap Part B Effective: Policy Number: BS [place] [employer] Donna Darden 1986 [id number] PayID: [id number] [address] [address] [place] [address] Problems Date Description Provider Status Onset: Type 2 diabetes mellitus Active Onset: Essential hypertension Active Onset: Pure hypercholesterolemia Active Onset: 10/15/2014 Nonexudative age-related macular Jose Alfredo Nguyễn M.D. 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 Active Onset: 10/15/2014 Vitreous degeneration Jose Alfredo Nguyễn M.D. Active Onset: 10/15/2014 Pseudophakia Jose Alfreod Nguyễn M.D. Active Onset: 10/17/2015 Retinal detachment Jose Alfredo Nguyễn M.D. 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 ETOH Use Denies alcohol use Smoking Patient has never smoked Recreational Drug Use Denies Drug Use Daily Caffeine Consumes on average 1 cup of regular coffee per day Allergies, Adverse Reactions, Alerts Date Description Reaction Status Severity Comments 08/16/2017 Levaquin active 10/14/2014 NKDA inactive Medications Medication Date Status Form Strength Qnty SIG Indications Ordering Provider Amlodipine Active Tablets 10mg Unknown Besylate 000 Metformin HCL Active Tablets 500mg Unknown 000 Multi For Her Active Capsules Unknown 50+ 000 Metoprolol Active Tablets ER 50mg Unknown Succinate ER 000 24HR Preservision Active Capsules Areds 2 1 cap by Jose Alfredo Collado 2 000 mouth Arleo, twice a M.D. day Humalog Active Solution 100Unit/ML Unknown 000 Aspir-[address] 81mg Unknown 000 Lisinopril Active Tablets 10mg Unknown 000 Tylenol Extra Active Tablets 500mg Unknown Strength 000 Basaglar Active Solution 100Unit/ML Dilip Bell Kwikpen 000 Pen-Inject M.D. Furosemide Active Tablets 20mg Manuel Stanley 000 Luis Antonio M.D. Iron Active Tablets 28mg Unknown 000 Cranberry Active Capsules 200mg Unknown 000 Atorvastatin Active Tablets 40mg Unknown Calcium 000 Cefuroxime Hx Tablets 250mg Unknown Axetil 000 - 016 Omeprazole Hx Capsules 20mg Unknown 000 - DR 018 Invokana 0 Hx Tablets 100mg Unknown 000 - 016 Lisinopril-Hydr Hx Tablets 20-12.5mg take 1 Unknown ochlorothiazide 000 - tablet by mouth 016 once daily Lantus Solostar Hx Solution 100Unit/ML Unknown 000 - Pen-Inject 018 Iron 0 Hx Tablets 28mg every day Unknown 000 - 016 Ibuprofen 0 Hx Tablets 200mg 2 by Unknown 000 - mouth every 016 morning every evening Results Description No Information Procedures Date CPT Code Description Status 08/06/2016 62143 Scanning Computerized Opthalmic Diagnostic Posterior Completed Seg Retina 08/06/2016 94432 Est Patient Comprehensive Exam Completed 10/17/2015 17418 Fundus Photography With Interpretation And Report Completed 10/17/2015 37704 Est Patient Comprehensive Exam Completed 10/15/2014 63428 Scanning Computerized Opthalmic Diagnostic Posterior Completed Seg Retina 10/15/2014 52971 Est Patient Comprehensive Exam Completed 11/09/2013 [address] [place] Completed 10/23/2013 601 [place] Completed 08/17/2013 79980 Est Patient Comprehensive Exam Completed 08/17/2013 06679 Scanning Computerized Opthalmic Diagnostic Posterior Completed Seg Retina 08/11/2012 69480 Fundus Photography With Interpretation And Report Completed 08/11/2012 12067 Est Patient Comprehensive Exam Completed 08/09/2011 78360 Est Patient Intermediate Exam Completed 05/03/2011 [address] [place] Completed 04/19/2011 14545 Remove Secondary Cataract, Laser (Yag) Completed 04/12/2011 73974 Remove Secondary Cataract, Laser (Yag) Completed 03/19/2011 66981 Est Patient Comprehensive Exam Completed 01/18/2009 90345 Est Patient Intermediate Exam Completed 01/18/2009 80663 Determination Of Refractive State Completed 06/15/2008 33765 Fundus Photography With Interpretation And Report Completed 06/15/2008 75958 Est Patient Intermediate Exam Completed 12/16/2007 41246 Est Patient Comprehensive Exam Completed 06/16/2007 11984 Scanning Laser W/Interp And Report Completed 06/16/2007 92960 Determination Of Refractive State Completed 06/16/2007 78668 Est Patient Intermediate Exam Completed 03/17/2007 24049 Est Patient Intermediate Exam Completed 12/16/2006 17692 Scanning Laser W/Interp And Report Completed 12/16/2006 84419 Est Patient Comprehensive Exam Completed 09/12/2005 90816 Extracapsular Cataract Extraction W/Intraocular Lens Completed 08/01/2005 13936 Extracapsular Cataract Extraction W/Intraocular Lens Completed 07/24/2005 78161 Unlisted Procedure, Ophthalmological Completed 07/24/2005 91358 Ophthalmic Biometry Completed 07/06/2005 61559 New Patient Comprehensive Exam Completed 06/26/2005 33779 Rescheduled Appointment Completed Plan of Care 08/16/2017 - Jose Alfredo Nguyễn M.D.[id number] Nexdtve age-related mclr degn, bilateral, intermed dry stageComments:Smoking can increase the risk of developing or worsening any eye related disease, as well as affect your overall health. If you are a smoker, we strongly recommend that you quit.If you are not a smoker, we strongly recommend that you do not start. You have Macular Degeneration. Check your Amsler Grid, with each eye separately, and take the AREDS II formula vitamins. If you notice any changes in your vision, please call the office and schedule an appointment to see any of the doctors here.Follow up:1 Year Follow Up OCT MAC Diagnostic Refraction You can expect to have your eyes dilated at your next visit. If Dr. Nguyễn orders any additional testing, it may require extra time. We recommend that youbring sunglasses, as dilation drops often make you light sensitive until they wear off. We always recommend you bring someone to drive you home if you are uncomfortable driving with your eyes dilated. If you have any questions before your next visit, feel free to call our office at .E11.9 Type 2 diabetes mellitus without complicationsComments:You have diabetes. I do not detect any changes in both of your retinas from diabetes at this time. Proper control of your diabetes is important for the health of your eyes. Changes in your eyes from diabetes can happen without symptoms, so it is important that you have your eyes examined. Dr. Nguyễn has sent a report to your primary care doctor, letting them know there is no damage from the Diabetes in your eyes.H33.8 Other retinal detachmentsComments:Your old retinal detachment in your left eye appears to be stable at this time. If you have any newsymptoms of flashes of light or floaters, please contact our office immediately.Z96.1 Presence of intraocular lensComments:The artificial lens implants in both eyes appear to be stable at this time.
[2017-09-10 11:51] VITALS: BP 132/70
--- NOTE | 2017-09-10 11:53 | UC ---
Skin Complaint HPI - HPI Summary HPI Summary: 71 wf presents with pain and swelling to left hand for 1 month. She tells me that 1 month ago she had an IV placed here for a procedure and since that time has had issues. Waxing and waning left hand pain and edema. Denies SOB, chest pain, numbness or tingling. Denies injury - History of Current Complaint Chief Complaint: UCUpperExtremity Time Seen by Provider: 09/10/17 11:52 Stated Complaint: HAND PAINFUL AND SWOLLEN Hx Obtained From: Patient Onset/Duration: Gradual Onset Onset Severity: Moderate Current Severity: Moderate Pain Intensity: 6 Pain Scale Used: 0-10 Numeric - Allergy/Home Medications Allergies/Adverse Reactions: Allergies Allergy/AdvReac Type Severity Reaction Status Date / Time levofloxacin [From Levaquin] Allergy Nausea And Verified 09/10/17 11:37 Vomiting Review of Systems Constitutional: Negative Skin: Other - LEFT hand pain and swelling Respiratory: Negative Cardiovascular: Negative Gastrointestinal: Negative Neurovascular: Negative Neurological: Negative Psychological: Negative All Other Systems Reviewed And Are Negative: Yes PMH/Surg Hx/FS Hx/Imm Hx Endocrine History: Diabetes, Dyslipidemia Cardiovascular History: Hypertension - Surgical History Surgical History: Yes Surgery Procedure, Year, and Place: Bladder surgery 08/02/17. LUMBAR spinal surgery 08/2016 x 2-ONE WITH RODDING. c-sections x3 - [facility]. wisdom teeth extraction - [facility] – [place]. RETINA DETACHMENT 2006 (REPAIRED WITH SCLERAL BUCKLE - OK TO SCAN PER DR RUVALCABA.);- [place]. bilateral cataract extractions with IOL's - [facility] - Family History Known Family History: Positive: Unknown, Diabetes - Social History Occupation: Retired Lives: With Family Alcohol Use: Rare Substance Use Type: None Smoking Status (MU): Never Smoked Tobacco Have You Smoked in the Last Year: No - Immunization History Most Recent Influenza Vaccination: fall 2016 Most Recent Pneumonia Vaccination: 2013 Physical Exam - Summary Physical Exam Summary: GENERAL: NAD. WDWN. No pain distress. SKIN: No rashes, sores, lesions, or open wounds. NECK: Supple. Nontender. No lymphadenopathy. CHEST: No accessory muscle use. Breathing comfortably and in no distress. CV: Pulses intact radial and ulnar. MSK: LEFT hand: Mild dorsal edema and moderate TTP. No streaking or open sores. No warmth. FROM. Strength 5/5 including plaster foreman strength. NEURO: Alert. Sensations intact hand and all fingers. PSYCH: Age appropriate behavior. Triage Information Reviewed: Yes Vital Signs: Initial Vital Signs Temp 98.6 F 09/10/17 11:42 Pulse 85 09/10/17 11:42 Resp 16 09/10/17 11:42 BP 132/70 09/10/17 11:42 Pulse Ox 99 09/10/17 11:42 Vital Signs Reviewed: Yes Course/Dx - Course Course Of Treatment: Suspect phlebitis of left hand s/p IV. Will place her on Augmentin and have her f/u if does not improve. - Diagnoses Provider Diagnoses: phlebitis left hand Discharge - Sign-Out/Discharge Documenting (check all that apply): Patient Departure - Discharge Plan Condition: Stable Disposition: HOME Prescriptions: Amoxicillin/Clavulanate TAB* [Augmentin TAB 875*] 875 mg PO BID #14 tab Patient Education Materials: Superficial Thrombophlebitis (ED), Phlebitis (ED) Referrals: Randall Stanley MD [Primary Care Provider] - Additional Instructions: If you develop a fever, shortness of breath, chest pain, new or worsening symptoms - please call your PCP or go to the ED. 1) Apply ice to the area 2) Follow up with your primary doctor if your symptoms do not improve - Billing Disposition and Condition Condition: STABLE Disposition: Home
== END 2017-09-10 12:09 | disposition home or self-care (01) ==
LOC: UCEAST 11:21
DX: I80.8 Phlebitis and thrombophlebitis of other sites (principal); E11.9 Type 2 diabetes mellitus without complications; I10 Essential (primary) hypertension; Z88.1 Allergy status to other antibiotic agents
CPT/HCPCS: 99212; G0463

== ENCOUNTER 2017-10-28 09:11 | Emergency (ER) | payer MEDICARE, BC ==
[2017-10-28 09:33] VITALS: BP 153/60
--- NOTE | 2017-10-28 10:07 | UC ---
Skin Complaint HPI - HPI Summary HPI Summary: 72-year-old female with history of diabetes presents with 2 week history of pruritic rash to bilateral axilla and groin. States she has tried over-the- counter hydrocortisone cream and aloe with no improvement in symptoms. Denies fever, chills, changes in soap, detergent, lotions, cosmetics, diet, medications , or contact with environmental irritants. - History of Current Complaint Chief Complaint: Ras Time Seen by Provider: 10/28/17 09:51 Stated Complaint: RASH Hx Obtained From: Patient Onset/Duration: Gradual Onset Skin Exposure Onset/Duration: Weeks Ago - 2 Onset Severity: Mild Current Severity: Mild Pain Intensity: 0 Character: Pruritus, Redness Aggravating Factor(s): Humidity Alleviating Factor(s): Nothing Associated Signs & Symptoms: Negative: Difficulty Breathing, Fever, Chills, Cough, Wheezing, Chest Pain, Drainage, Tenderness, Red Streaks - Allergy/Home Medications Allergies/Adverse Reactions: Allergies Allergy/AdvReac Type Severity Reaction Status Date / Time levofloxacin [From Levaquin] Allergy Nausea And Verified 10/28/17 09:39 Vomiting Home Medications: Home Medications Ferrous Sulfate TAB* 325 mg PO DAILY 10/28/17 [History Confirmed 10/28/17] Review of Systems Constitutional: Negative Skin: Rash Respiratory: Negative Cardiovascular: Negative Is Patient Immunocompromised?: No All Other Systems Reviewed And Are Negative: Yes PMH/Surg Hx/FS Hx/Imm Hx Endocrine History: Diabetes, Dyslipidemia Cardiovascular History: Hypertension GI/ History: Renal Disease - Surgical History Surgical History: Yes Surgery Procedure, Year, and Place: Bladder surgery 08/02/17. LUMBAR spinal surgery 08/2016 x 2-ONE WITH RODDING. c-sections x3 - [facility]. wisdom teeth extraction - [facility] – [place]. RETINA DETACHMENT 2006 (REPAIRED WITH SCLERAL BUCKLE - OK TO SCAN PER DR RUVALCABA.);- [place]. bilateral cataract extractions with IOL's - [facility] - Family History Known Family History: Positive: Diabetes - Social History Occupation: Retired Lives: With Family Alcohol Use: Rare Substance Use Type: None Smoking Status (MU): Never Smoked Tobacco Have You Smoked in the Last Year: No - Immunization History Most Recent Influenza Vaccination: fall 2016 Most Recent Pneumonia Vaccination: 2013 Physical Exam Triage Information Reviewed: Yes Appearance: Well-Appearing, No Pain Distress, Well-Nourished Vital Signs: Initial Vital Signs Temp 98 F 10/28/17 09:30 Pulse 88 10/28/17 09:30 Resp 17 10/28/17 09:30 BP 153/60 10/28/17 09:30 Pulse Ox 100 10/28/17 09:30 Vital Signs Reviewed: Yes Respiratory: Positive: Lungs clear, Normal breath sounds Cardiovascular: Positive: RRR, No Murmur Musculoskeletal Exam: Normal Neurological: Positive: Alert Skin: Positive: rashes - Erythematous, scaly, pruritc rash to bilateral axilla and groin area Course/Dx - Course Course Of Treatment: 72-year-old female with history of diabetes presents with 2 week history of pruritic rash to her bilateral axilla and groin area. Afebrile. Exam reveals a scaly pruritic rash consistent with a tinea intertrigo to bilateral axilla and groin. Will treat with clotrimazole cream twice a day as well as appropriate skincare. Patient is to follow up with primary care provider if no improvement. - Diagnoses Provider Diagnoses: tinea intertrigo Discharge - Sign-Out/Discharge Documenting (check all that apply): Patient Departure All imaging exams completed and their final reports reviewed: No Studies - Discharge Plan Condition: Stable Disposition: HOME Prescriptions: Clotrimazole 1% CREAM* [Clotrimazole 1%*] 1 applic TOPICAL BID #1 tube Patient Education Materials: Skin Yeast Infection (ED) Referrals: Randall Stanley MD [Primary Care Provider] - If Needed Additional Instructions: Start using clotrimazole cream twice daily to affected area(s). Keep the affected areas clean using mild soap and water. Be sure to pat dry the areas thoroughly before dressing. Allow these areas a chance to air out every day. You can also use a drying powder such as corn starch to the affected areas to help absorb excess moisture. You may use over the counter diphenhydramine (Benadryl) according to directions as needed for itching. This may cause drowsiness. Follow up with your primary care provider as needed. - Billing Disposition and Condition Condition: STABLE Disposition: Home
== END 2017-10-28 10:14 | disposition home or self-care (01) ==
LOC: UCEAST 09:11
DX: L30.4 Erythema intertrigo (principal); Z88.1 Allergy status to other antibiotic agents; E78.00 Pure hypercholesterolemia, unspecified
CPT/HCPCS: 99212; G0463

== ENCOUNTER 2021-09-20 08:42 | Inpatient (IN) ==
[~2021-09-20 08:42] MED LIST changes: -Buffered Lidocaine 0.9% SYRIN* 5 ML/SYR SYRINGE INTRADERM ONE; +Buffered Lidocaine 1% SYRIN 1 ml INTRADERM ONE; -Famotidine IV* 10 MG/ML 2 ML (20 mg) IV ONE; +Lactated Ringers 1000 ml BAG 1,000 ML IV SCH; +Metoclopramide 5 MG/ML VIAL (10 mg) IV PRN; -Metoclopramide IV* 5 MG/ML 2 ML VIAL IV SLOW PU ONE; +Naloxone 0.4 mg VIAL 0.4 mg/ml 1 ml VIAL IV PRN; +Ondansetron 4 mg VIAL 2 MG/ML 2 ml VIAL IV PRN
[2021-09-20] MEDS ORDERED: ceFAZolin 2 GM PREMIX 2 GM/50 ML BAG ONE (08:58)
[2021-09-20] MEDS ORDERED: Dexamethasone IV 4 MG/ML VIAL 1 ml VIAL ONE (09:17)
[2021-09-20] MEDS ORDERED: Propofol 10 MG/ML 20 ML BTL ONE (09:17)
[2021-09-20] MEDS ORDERED: fentaNYL 250 mcg/5 ml 50 MCG/ML 5 ml VIAL (250 MCG) ONE (09:17)
[2021-09-20] MEDS ORDERED: Rocuronium 50 mg VIAL 10 mg/ml 5 ml VIAL (50 mg) ONE ×2 (09:17→12:26)
[2021-09-20] MEDS ORDERED: Lidocaine 2% PF 5 ML VIAL ONE (09:17)
[2021-09-20] MEDS ORDERED: Ondansetron 4 mg VIAL 2 MG/ML 2 ml VIAL ONE (09:17)
[2021-09-20] MEDS ORDERED: Thrombin 5,000 UNITS 1 APPLIC KIT - topical use - TOPICAL ONE ×2 (10:08→13:12)
[2021-09-20] MEDS ORDERED: Lidocaine 1% w EPI 1:200,000 SDV 30 ML VIAL ONE (10:08)
[2021-09-20] MEDS ORDERED: Gelfoam Sponge SIZE 100 SPONGE ONE (10:08)
[2021-09-20] MEDS ORDERED: Phenylephrine 40 mcg/mL 10mL (400mcg) SYRINGE ONE (11:23)
[2021-09-20] MEDS ORDERED: Phenylephrine IV 10 MG/ML 1 ml VIAL ONE ×2 (11:36→12:59)
[2021-09-20] MEDS ORDERED: Sodium Chloride 0.9% 20 ML ONE (11:51)
[2021-09-20] MEDS ORDERED: Calcium CHLORIDE 10% SYRINGE 1 GM/10 ML ONE (12:20)
[2021-09-20] MEDS ORDERED: ceFAZolin VIAL VIAL ONE (12:44)
[2021-09-20] MEDS ORDERED: Midazolam 2 mg/2 ml VIAL 1 mg/ml 2 ml VIAL (2 mg) ONE (12:46)
[2021-09-20] MEDS ORDERED: Albumin Human 5% 12.5 GM/250 ML BTL IV ONE (13:00)
[2021-09-20] MEDS ORDERED: Norepinephrine IV 1 MG/ML 4 ML VIAL ONE (13:13)
[2021-09-20] MEDS ORDERED: Magnesium Hydroxide LIQ 30 ML UDC PO PRN (14:09)
[2021-09-20] MEDS ORDERED: Ondansetron 4 mg VIAL 2 MG/ML 2 ml VIAL IV PRN (14:09)
[2021-09-20] MEDS ORDERED: Morphine 2 MG/ML SYRINGE IV PRN (14:25)
[2021-09-20] MEDS ORDERED: fentaNYL 100 mcg/2 ml 50 MCG/ML VIAL ONE (14:34)
[2021-09-20] MEDS: fentaNYL 100 mcg/2 ml 50 MCG/ML VIAL IV PRN ×4 (14:35→15:54)
[2021-09-20] MEDS ORDERED: HYDROcodone/ACETAMIN 5/325 mg TAB ONE ×2 (14:40→16:34)
[2021-09-20] MEDS: HYDROcodone/ACETAMIN 5/325 mg TAB PO PRN ×2 (14:44→16:35)
[2021-09-20] MEDS ORDERED: Lactated Ringers 1000 ml BAG 1,000 ML IV SCH (15:00)
[2021-09-20] MEDS ORDERED: cloNIDine 0.3 MG PATCH 0.3 MG/24 HR 7 DAY PATCH TRANSDERM SCH (18:00)
[2021-09-20] MEDS: Insulin GLARGINE 100 un/ml 10 ml VIAL SUBCUT SCH (21:14)
[2021-09-21 00:27] LABS: Glucose Confirmatory 470 mg/dL (70-100)
[2021-09-21] MEDS: Cholecalciferol (VIT D3) 1,000 unit TAB PO SCH (09:36)
[2021-09-21 20:30] LABS: ABS Eosinophils 0.1 10^3/ul (0-0.6); ABS Lymphocytes 1.5 10^3/ul (1.0-4.8); ABS Monocytes 0.8 10^3/ul (0-0.8); ABS Neutrophils 13.2 10^3/ul (1.5-7.7); Hematocrit 27 % (35-47); Hemoglobin 9.1 g/dL (12.0-16.0); Lymphocyte % 9.5 %; Mean Corpuscular HGB Conc 34 g/dL (31-36); Mean Corpuscular Hemoglobin 31 pg (27-31); Mean Corpuscular Volume 91 fL (80-97); Mean Platelet Volume 7.8 fL (7.4-10.4); Platelet Count 289 10^3/uL (150-450); Red Blood Count 2.98 10^6 /uL (3.70-4.87); Red Cell Distribution Width 15 % (10-15); White Blood Count 15.5 10^3/uL (3.5-10.8)
[2021-09-21 20:45] LABS: Albumin 3.6 g/dL (3.2-5.2); Albumin/Globulin Ratio 1.4 (1-3); Calcium 9.2 mg/dL (8.6-10.3); Globulin 2.5 g/dL (2-4); Magnesium 1.8 mg/dL (1.9-2.7); Potassium 3.9 mmol/L (3.5-5.0); Total Bilirubin 0.7 mg/dL (0.2-1.0); Total Protein 6.1 g/dL (6.4-8.9); eGFR CKD-EPI 20.5 (>60)
[2021-09-21] MEDS: Insulin GLARGINE 100 un/ml 10 ml VIAL SUBCUT SCH (21:20)
[2021-09-21] MEDS ORDERED: Magnesium Sulfate 2 gm BAG 2 GM/50 ML BAG IVPB ONE (21:47)
[2021-09-21] MEDS ORDERED: Bumetanide IV 0.25 MG/ML 4 ml VIAL (1 mg) SLOW PUSH ONE (22:00)
[2021-09-22 01:23] LABS: Urine Appearance Clear; Urine Bilirubin Negative (Negative); Urine Blood Trace (Lysed) (Negative); Urine Color Yellow; Urine Glucose Negative (Negative); Urine Ketones Negative (Negative); Urine Nitrite Negative (Negative); Urine Protein Negative (Negative); Urine Specific Gravity 1.015 (1.005-1.030); Urine Urobilinogen 0.2 (Negative) (Negative)
[2021-09-22 01:33] LABS: Urine Bacteria Absent (Absent); Urine Red Blood Cell Trace(0-2/hpf) (Absent); Urine Squamous Epithelial Cell Present (Absent); Urine White Blood Cell 3+(>20/hpf) (Absent)
[2021-09-22] MEDS: cefTRIAXone 1 gm/50 mL D5W 1 GM/50 ML BAG IV SCH (02:46)
[2021-09-22 06:21] LABS: ABS Eosinophils 0.1 10^3/ul (0-0.6); ABS Lymphocytes 2.4 10^3/ul (1.0-4.8); ABS Monocytes 1.3 10^3/ul (0-0.8); ABS Neutrophils 15.8 10^3/ul (1.5-7.7); Eosinophil % 0.7 %; Hematocrit 25 % (35-47); Hemoglobin 7.9 g/dL (12.0-16.0); Mean Corpuscular HGB Conc 32 g/dL (31-36); Mean Corpuscular Hemoglobin 29 pg (27-31); Mean Corpuscular Volume 91 fL (80-97); Mean Platelet Volume 7.9 fL (7.4-10.4); Platelet Count 272 10^3/uL (150-450); Red Blood Count 2.71 10^6 /uL (3.70-4.87); Red Cell Distribution Width 15 % (10-15); White Blood Count 19.7 10^3/uL (3.5-10.8)
[2021-09-22 06:36] LABS: Calcium 8.6 mg/dL (8.6-10.3); Magnesium 2.3 mg/dL (1.9-2.7); Potassium 4.2 mmol/L (3.5-5.0); eGFR CKD-EPI 20.2 (>60)
[2021-09-22] MEDS: Cholecalciferol (VIT D3) 1,000 unit TAB PO SCH (11:14)
[2021-09-22] MEDS ORDERED: Calcium Carb (TUMS) 500 mg CHEW TAB PO ONE (13:10)
[2021-09-22] MEDS: Insulin GLARGINE 100 un/ml 10 ml VIAL SUBCUT SCH (21:49)
[2021-09-23] MEDS: cefTRIAXone 1 gm/50 mL D5W 1 GM/50 ML BAG IV SCH (01:48)
[2021-09-23 06:02] LABS: ABS Eosinophils 0.3 10^3/ul (0-0.6); ABS Lymphocytes 2.7 10^3/ul (1.0-4.8); ABS Monocytes 1.1 10^3/ul (0-0.8); ABS Neutrophils 9.2 10^3/ul (1.5-7.7); Eosinophil % 2.5 %; Hematocrit 22 % (35-47); Hemoglobin 7.1 g/dL (12.0-16.0); Lymphocyte % 20.1 %; Mean Corpuscular HGB Conc 32 g/dL (31-36); Mean Corpuscular Hemoglobin 29 pg (27-31); Mean Corpuscular Volume 91 fL (80-97); Mean Platelet Volume 7.8 fL (7.4-10.4); Nucleated Red Blood Cells % 0.1; Platelet Count 222 10^3/uL (150-450); Red Blood Count 2.47 10^6 /uL (3.70-4.87); Red Cell Distribution Width 14 % (10-15); White Blood Count 13.3 10^3/uL (3.5-10.8)
[2021-09-23 06:21] LABS: Calcium 8.2 mg/dL (8.6-10.3); Potassium 3.8 mmol/L (3.5-5.0); eGFR CKD-EPI 20.5 (>60)
[2021-09-23] MEDS: Cholecalciferol (VIT D3) 1,000 unit TAB PO SCH (09:10)
[2021-09-23] MEDS ORDERED: Senna TAB 8.6 mg TAB PO PRN (10:38)
[2021-09-23] MEDS: Calcium Carb (TUMS) 500 mg CHEW TAB PO PRN (12:04)
[2021-09-23] MEDS: Insulin GLARGINE 100 un/ml 10 ml VIAL SUBCUT SCH (20:46)
[2021-09-24] MEDS: cefTRIAXone 1 gm/50 mL D5W 1 GM/50 ML BAG IV SCH (02:07)
[2021-09-24 04:54] LABS: Urine Appearance Cloudy; Urine Bilirubin Negative (Negative); Urine Blood Trace (Intact) (Negative); Urine Color Straw; Urine Glucose Negative (Negative); Urine Ketones Negative (Negative); Urine Nitrite Negative (Negative); Urine Protein Negative (Negative); Urine Urobilinogen 0.2 (Negative) (Negative)
[2021-09-24 05:01] LABS: Urine Bacteria 1+ (Absent); Urine Red Blood Cell 2+(6-10/hpf) (Absent); Urine Squamous Epithelial Cell Present (Absent); Urine White Blood Cell 3+(>20/hpf) (Absent)
[2021-09-24 05:37] LABS: ABS Eosinophils 0.5 10^3/ul (0-0.6); ABS Lymphocytes 2.2 10^3/ul (1.0-4.8); ABS Neutrophils 6.1 10^3/ul (1.5-7.7); Eosinophil % 4.9 %; Hematocrit 22 % (35-47); Hemoglobin 7.5 g/dL (12.0-16.0); Lymphocyte % 22.2 %; Mean Corpuscular HGB Conc 34 g/dL (31-36); Mean Corpuscular Hemoglobin 31 pg (27-31); Mean Corpuscular Volume 91 fL (80-97); Platelet Count 228 10^3/uL (150-450); Red Blood Count 2.44 10^6 /uL (3.70-4.87); Red Cell Distribution Width 14 % (10-15); White Blood Count 9.9 10^3/uL (3.5-10.8)
[2021-09-24 05:53] LABS: Potassium 3.6 mmol/L (3.5-5.0)
[2021-09-24] MEDS: Calcium Carb (TUMS) 500 mg CHEW TAB PO PRN (08:46)
[2021-09-24] MEDS: Cholecalciferol (VIT D3) 1,000 unit TAB PO SCH (08:47)
[2021-09-24] MEDS: Insulin GLARGINE 100 un/ml 10 ml VIAL SUBCUT SCH (22:13)
[2021-09-25] MEDS: cefTRIAXone 1 gm/50 mL D5W 1 GM/50 ML BAG IV SCH (02:27)
[2021-09-25 05:55] LABS: ABS Eosinophils 0.5 10^3/ul (0-0.6); ABS Lymphocytes 1.9 10^3/ul (1.0-4.8); ABS Monocytes 1.1 10^3/ul (0-0.8); ABS Neutrophils 5.3 10^3/ul (1.5-7.7); Eosinophil % 6.1 %; Hematocrit 22 % (35-47); Hemoglobin 7.6 g/dL (12.0-16.0); Lymphocyte % 21.1 %; Mean Corpuscular HGB Conc 35 g/dL (31-36); Mean Corpuscular Hemoglobin 31 pg (27-31); Mean Corpuscular Volume 90 fL (80-97); Mean Platelet Volume 7.9 fL (7.4-10.4); Platelet Count 258 10^3/uL (150-450); Red Blood Count 2.44 10^6 /uL (3.70-4.87); Red Cell Distribution Width 14 % (10-15); White Blood Count 8.9 10^3/uL (3.5-10.8)
[2021-09-25 06:12] LABS: Calcium 8.3 mg/dL (8.6-10.3); Potassium 3.6 mmol/L (3.5-5.0); eGFR CKD-EPI 18.3 (>60)
[2021-09-25] MEDS: Cholecalciferol (VIT D3) 1,000 unit TAB PO SCH (10:17)
[2021-09-25 17:01] LABS: Ferritin 483.1 ng/mL (11-307)
[2021-09-25 17:03] LABS: Folate 19.07 ng/mL (5.90-24.80)
[2021-09-25] MEDS: Insulin GLARGINE 100 un/ml 10 ml VIAL SUBCUT SCH (20:58)
[2021-09-26 05:06] LABS: ABS Eosinophils 0.4 10^3/ul (0-0.6); ABS Lymphocytes 1.9 10^3/ul (1.0-4.8); ABS Monocytes 1.2 10^3/ul (0-0.8); ABS Neutrophils 4.4 10^3/ul (1.5-7.7); Eosinophil % 5.4 %; Hematocrit 23 % (35-47); Hemoglobin 7.7 g/dL (12.0-16.0); Lymphocyte % 23.5 %; Mean Corpuscular HGB Conc 34 g/dL (31-36); Mean Corpuscular Hemoglobin 31 pg (27-31); Mean Corpuscular Volume 91 fL (80-97); Mean Platelet Volume 7.8 fL (7.4-10.4); Platelet Count 282 10^3/uL (150-450); Red Blood Count 2.52 10^6 /uL (3.70-4.87); Red Cell Distribution Width 14 % (10-15)
[2021-09-26 05:29] LABS: Calcium 8.6 mg/dL (8.6-10.3); Potassium 3.7 mmol/L (3.5-5.0); eGFR CKD-EPI 18.1 (>60)
[2021-09-26] MEDS: Cholecalciferol (VIT D3) 1,000 unit TAB PO SCH (09:38)
[2021-09-26 11:11] VITALS: BP 138/73
[2021-09-26 12:58] LABS: Rapid COVID-19 Molecular Undetected (Undetected)
== END 2021-09-26 13:45 | DRG 453 ==
LOC: OR 08:42 → SSU 17:21
PROVIDERS: ADMIT Neurological Surgery; ATTEND Neurological Surgery

== ENCOUNTER 2022-08-11 13:31 | Inpatient (IN) ==
[2022-08-11] MEDS ORDERED: Dexamethasone IV 4 MG/ML VIAL 1 ml VIAL IV SLOW PU ONE (14:02)
[2022-08-11 14:28] LABS: ABS Basophils 0.1 10^3/uL (0.0-0.1); ABS Eosinophils 0.2 10^3/uL (0.0-0.5); ABS Lymphocytes 1.4 10^3/uL (1.0-4.8); ABS Monocytes 0.9 10^3/uL (0.0-0.9); ABS Neutrophils 7.7 10^3/uL (1.5-7.6); ABS Nucleated RBC 0.01 10^3/ul; Eosinophil % 2.3 %; Hematocrit 27.5 % (35-45); Hemoglobin 9.1 g/dL (11.5-14.3); Lymphocyte % 13.4 %; Mean Corpuscular Hgb Conc 33.2 g/dL (31-36); Mean Corpuscular Volume 87.2 fL (80-97); Nucleated Red Blood Cells % 0.1 /100 WBC (0.0-0.4); Platelet Count 329 10^3/uL (150-450); Red Blood Count 3.15 10^6/uL (3.63-4.92); Red Cell Distribution Width 15.4 % (12-17); White Blood Count 10.3 10^3/uL (3.8-11.8)
[2022-08-11] MEDS ORDERED: Albuterol/Ipratropium NEB.SOL (2.5/0.5 MG) 3 ML NEB.SOLN INH ONE (14:40)
[2022-08-11 14:42] LABS: Albumin 3.7 g/dL (3.2-5.2); CO2 Carbon Dioxide 16 mmol/L (22-32); Calcium 9.2 mg/dL (8.6-10.3); Chloride 108 mmol/L (101-111); Sodium 135 mmol/L (135-145)
[2022-08-11 14:45] LABS: High Sens Troponin Baseline 17 pg/mL (<15)
[2022-08-11 14:48] LABS: ALT 14 U/L (7-52); Albumin/Globulin Ratio 1.2 (1-3); Alkaline Phosphatase 113 U/L (35-149); Blood Urea Nitrogen 53 mg/dL (6-24); Creatinine, Serum 2.36 mg/dL (0.51-0.95); Globulin 3.2 g/dL (2-4); Glucose 256 mg/dL (70-100); Total Protein 6.9 g/dL (6.4-8.9); eGFR CKD-EPI 20.6 (>60)
[2022-08-11 15:13] LABS: Anion Gap 11 mmol/L (2-16)
[2022-08-11 15:56] LABS: Potassium Redraw 5.1 mmol/L (3.5-5.0)
[2022-08-11 17:10] LABS: Urine Appearance Turbid; Urine Bilirubin Negative (Negative); Urine Blood Negative (Negative); Urine Color Yellow; Urine Glucose 1+(50 mg/dL) (Negative); Urine Ketones Trace (Negative); Urine Nitrite Negative (Negative); Urine Protein 2+(100 mg/dL) (Negative); Urine Specific Gravity 1.014 (1.002-1.030); Urine Urobilinogen Negative (Negative)
[2022-08-11 17:37] LABS: Urine Bacteria 1+ (Absent); Urine Red Blood Cell 2+(6-10/hpf) (Absent); Urine Squamous Epithelial Cell Present (Absent); Urine White Blood Cell 3+(>20/hpf) (Absent)
[2022-08-11] MEDS ORDERED: Bumetanide IV 0.25 MG/ML 4 ml VIAL (1 mg) IV SLOW PU ONE (17:40)
[2022-08-11] MEDS ORDERED: cefTRIAXone 1 gm/50 mL D5W 1 GM/50 ML BAG IV ONE (18:10)
[2022-08-11] MEDS ORDERED: Ondansetron 4 mg VIAL 2 MG/ML 2 ml VIAL IV PRN (21:44)
[2022-08-11 22:18] LABS: Magnesium 2.2 mg/dL (1.9-2.7)
[2022-08-11] MEDS ORDERED: Dextrose 50% Syringe 50 ml 25 GM/50 ML SYRINGE IV PUSH PRN (22:40)
[2022-08-11] MEDS ORDERED: Azithromycin 500 mg/250 ml NS 500 MG/250 ML BAG IVPB ONE (23:59)
[2022-08-12] MEDS: Heparin 5000 UNITS/ML 1 mL VIAL SUBCUT SCH ×3 (06:09→21:02)
[2022-08-12 06:32] LABS: ABS Basophils 0.1 10^3/uL (0.0-0.1); ABS Lymphocytes 0.5 10^3/uL (1.0-4.8); ABS Monocytes 0.4 10^3/uL (0.0-0.9); ABS Neutrophils 12.3 10^3/uL (1.5-7.6); Hematocrit 27.3 % (35-45); Lymphocyte % 3.8 %; Mean Corpuscular Hemoglobin 28.9 pg (27-33); Mean Corpuscular Volume 87.5 fL (80-97); Mean Platelet Volume 7.6 fL (7.5-11.2); Platelet Count 320 10^3/uL (150-450); Red Blood Count 3.12 10^6/uL (3.63-4.92); Red Cell Distribution Width 15.5 % (12-17); White Blood Count 13.3 10^3/uL (3.8-11.8)
[2022-08-12 06:52] LABS: Albumin 3.7 g/dL (3.2-5.2); Albumin/Globulin Ratio 1.2 (1-3); Creatinine, Serum 2.39 mg/dL (0.51-0.95); Potassium 5.2 mmol/L (3.5-5.0); Total Bilirubin 0.8 mg/dL (0.2-1.0); Total Protein 6.7 g/dL (6.4-8.9); eGFR CKD-EPI 20.3 (>60)
[2022-08-12] MEDS ORDERED: Albuterol/Ipratropium NEB.SOL (2.5/0.5 MG) 3 ML NEB.SOLN INH ONE (08:37)
[2022-08-12] MEDS: Albuterol 2.5mg/3 ml (0.083%) NEB.SOLN INH PRN ×2 (08:44→20:49)
[2022-08-12] MEDS ORDERED: SODIUM ZIRCONIUM CYCLOSILICATE 5 GM PACKET PO ONE (08:59)
[2022-08-12] MEDS ORDERED: Epoetin Alfa (NF) 10,000 UNITS/ML VIAL - ten thousand SUBCUT SCH (09:00)
[2022-08-12] MEDS ORDERED: Pneumococcal Vac 23-Polyvalent IM ONE (09:00)
[2022-08-12] MEDS: Cholecalciferol (VIT D3) 1,000 unit TAB PO SCH (09:04)
[2022-08-12] MEDS: Bumetanide IV 0.25 MG/ML 4 ml VIAL (1 mg) IV SLOW PU SCH ×2 (09:04→14:40)
[2022-08-12] MEDS: Multivitamins/Minerals TAB PO SCH (09:05)
[2022-08-12] MEDS: Insulin GLARGINE 100 un/ml 10 ml VIAL SUBCUT SCH (09:14)
[2022-08-12] MEDS: NF: Multivitamins/Mins AREDS2 (NF) CAP PO SCH ×2 (09:22→21:24)
[2022-08-12] MEDS: cefTRIAXone 1 gm/50 mL D5W 1 GM/50 ML BAG IV SCH (16:44)
[2022-08-12] MEDS: Aspirin EC 81 mg TAB.EC (enteric coated) PO SCH (21:01)
[2022-08-13] MEDS: Albuterol 2.5mg/3 ml (0.083%) NEB.SOLN INH PRN ×2 (02:01→06:27)
[2022-08-13] MEDS: guaiFENesin 100 mg/5 ml LIQ unit dose cup PO PRN ×2 (02:40→08:48)
[2022-08-13] MEDS: Heparin 5000 UNITS/ML 1 mL VIAL SUBCUT SCH ×3 (06:21→20:54)
[2022-08-13 07:03] LABS: Hematocrit 24.6 % (35-45); Hemoglobin 8.2 g/dL (11.5-14.3); Mean Corpuscular Hemoglobin 29.1 pg (27-33); Mean Corpuscular Hgb Conc 33.5 g/dL (31-36); Mean Corpuscular Volume 87.1 fL (80-97); Mean Platelet Volume 7.5 fL (7.5-11.2); Platelet Count 329 10^3/uL (150-450); Red Blood Count 2.83 10^6/uL (3.63-4.92); Red Cell Distribution Width 15.2 % (12-17); White Blood Count 13.6 10^3/uL (3.8-11.8)
[2022-08-13 07:20] LABS: Anion Gap 14 mmol/L (2-16); Blood Urea Nitrogen 68 mg/dL (6-24); C Reactive Protein 28.94 mg/L (<8.01); CO2 Carbon Dioxide 21 mmol/L (22-32); Chloride 99 mmol/L (101-111); Creatinine, Serum 2.66 mg/dL (0.51-0.95); Glucose 274 mg/dL (70-100); Potassium 4.2 mmol/L (3.5-5.0); Sodium 134 mmol/L (135-145); eGFR CKD-EPI 17.8 (>60)
[2022-08-13 07:45] LABS: % Iron Saturation 24 % (15-55); .Transferrin 167 mg/dL (203-362); Iron 56 ug/dL (50-212); Total Iron Binding Capacity 234 mcg/dL (250-450); Unsaturated Iron Binding 178 ug/dL
[2022-08-13 08:07] LABS: Ferritin 324.2 ng/mL (11-307)
[2022-08-13 08:10] LABS: Folate > 20.00 ng/mL (5.90-24.80)
[2022-08-13 08:11] LABS: Vitamin B12 580 pg/mL (180-914)
[2022-08-13] MEDS: NF: Multivitamins/Mins AREDS2 (NF) CAP PO SCH ×2 (08:42→20:52)
[2022-08-13] MEDS: Bumetanide IV 0.25 MG/ML 4 ml VIAL (1 mg) IV SLOW PU SCH (08:48)
[2022-08-13] MEDS: Multivitamins/Minerals TAB PO SCH (08:49)
[2022-08-13] MEDS: Cholecalciferol (VIT D3) 1,000 unit TAB PO SCH (08:49)
[2022-08-13] MEDS: Insulin GLARGINE 100 un/ml 10 ml VIAL SUBCUT SCH (08:49)
[2022-08-13] MEDS ORDERED: Dextrose 50% Syringe 50 ml 25 GM/50 ML SYRINGE IV PUSH PRN (10:40)
[2022-08-13] MEDS: cefTRIAXone 1 gm/50 mL D5W 1 GM/50 ML BAG IV SCH (16:52)
[2022-08-13] MEDS: Aspirin EC 81 mg TAB.EC (enteric coated) PO SCH (20:47)
[2022-08-14] MEDS: Heparin 5000 UNITS/ML 1 mL VIAL SUBCUT SCH (05:37)
[2022-08-14 05:39] LABS: Hematocrit 25.5 % (35-45); Hemoglobin 8.5 g/dL (11.5-14.3); Mean Corpuscular Hemoglobin 28.3 pg (27-33); Mean Corpuscular Hgb Conc 33.5 g/dL (31-36); Mean Corpuscular Volume 84.4 fL (80-97); Mean Platelet Volume 7.7 fL (7.5-11.2); Platelet Count 351 10^3/uL (150-450); Red Blood Count 3.02 10^6/uL (3.63-4.92); Red Cell Distribution Width 15.1 % (12-17); White Blood Count 13.1 10^3/uL (3.8-11.8)
[2022-08-14 05:55] LABS: Calcium 8.9 mg/dL (8.6-10.3); Creatinine, Serum 2.49 mg/dL (0.51-0.95); Magnesium 1.9 mg/dL (1.9-2.7); Potassium 3.7 mmol/L (3.5-5.0); eGFR CKD-EPI 19.3 (>60)
[2022-08-14] MEDS ORDERED: Magnesium Sulfate 2 gm BAG 2 GM/50 ML BAG IVPB ONE (07:55)
[2022-08-14] MEDS: Insulin GLARGINE 100 un/ml 10 ml VIAL SUBCUT SCH (08:21)
[2022-08-14] MEDS: Multivitamins/Minerals TAB PO SCH (09:20)
[2022-08-14] MEDS: NF: Multivitamins/Mins AREDS2 (NF) CAP PO SCH (09:22)
[2022-08-14] MEDS: Cholecalciferol (VIT D3) 1,000 unit TAB PO SCH (09:32)
[2022-08-14 12:41] VITALS: BP 130/55
== END 2022-08-14 14:42 | disposition home or self-care (01) | DRG 193 ==
LOC: EDHOLD 13:31 → ED 13:31 → SUATTDRO 21:41 → MEDTELE 23:58 → SUATTDRO 08-12 11:18
PROVIDERS: ADMIT Internal Medicine; ATTEND Internal Medicine